=== PATIENT | male | born 1960 | race Caucasian/White ===

== ENCOUNTER 2016-09-05 12:04 | Emergency (ER) | payer OTHER ==
[2016-09-05 12:25] VITALS: BMI 21.9
[2016-09-05 12:54] LABS: BASOPHIL 0.5 % (0-2.0); EOSINOPHIL 6.1 % (0-4.5); MCH 29.3 pg (25.7-33.7); MCHC 33.7 g/dl (32.0-35.9); MEAN CELL VOLUME 86.8 fl (80-96); MEAN PLT VOLUME 7.4 fl (7.5-11.1); NEUTROPHILS 48.3 % (42.8-82.8); PLATELET COUNT 41 K/MM3 (134-434); RDW 14.7 % (11.9-15.9)
--- NOTE | 2016-09-05 13:02 | PDOC ---
History of Present Illness - History of Present Illness Initial Comments: 09/05/16 14:39 The patient is a 55 year old male, with a significant past medical history of anemia, liver transplant at [facility] (2005), portal vein clot from 3 years ago (on lovenox), and former heroin user, relapsed recently (currently at [facility] for detoxification) who presents to the emergency department sent by [facility] for pancytopenia today. He reports his last IV heroin use was 2 days ago before his admission into [facility]. The patient states he was clean for almost 20 years before his relapse 2 days ago. Pt did mention to [facility] that he had feeling of fatigue but this is chronic for the patient, and he has discussed it with his PMD at [facility] and states it is typical for s/p transplant. He denies chest pain, shortness of breath, cough, body aches, nasal congestion, headache and dizziness. He denies fever, nausea, vomit, diarrhea and constipation. He denies dysuria, frequency, urgency and hematuria. Allergies: NKDA Past surgical history: liver transplant PCP - Dr. Vinay Peterson ([phone]) <Cate Bhakta - Last Filed: 09/05/16 14:58> <Edenilson White - Last Filed: 09/05/16 15:15> - General Chief Complaint: Revisit, Lab Variance Stated Complaint: ABNORMAL LABS Time Seen by Provider: 09/05/16 12:24 Past History <Cate Bhakta - Last Filed: 09/05/16 14:58> - Past Medical History Anemia: No Asthma: No Cancer: No Cardiac Disorders: No CVA: No COPD: No CHF: No Dementia: No Diabetes: No GI Disorders: No Disorders: No HTN: No Hypercholesterolemia: No Kidney Stones: No Liver Disease: Yes (hx liver transplant 2005 [facility]) Suicide Attempt (Hx): No Seizures: No Thyroid Disease: No - Surgical History Abdominal Surgery: Yes (liver transplant) Appendectomy: No Cardiac Surgery: No Cholecystectomy: No Lung Surgery: No Neurologic Surgery: No Orthopedic Surgery: Yes (left hip replacement 2000) - Reproductive History Testicular Surgery: No - Psycho/Social/Smoking Cessation Hx Anxiety: No Suicidal Ideation: No Smoking History: Current every day smoker Have you smoked in the past 12 months: Yes Number of Cigarettes Smoked Daily: 20 Information on smoking cessation initiated: No 'Breaking Loose' booklet given: 09/04/16 (given on floor) Hx Alcohol Use: Yes Drug/Substance Use Hx: Yes Substance Use Type: Heroin Hx Substance Use Treatment: Yes <Edenilson White - Last Filed: 09/05/16 15:15> - Past Medical History Allergies/Adverse Reactions: Allergies Allergy/AdvReac Type Severity Reaction Status Date / Time No Known Allergies Allergy Verified 09/05/16 12:56 Home Medications: Ambulatory Orders Tacrolimus [Prograf] 1 mg PO BID 09/04/16 Enoxaparin Sodium [Lovenox] 30 mg SQ DAILY 09/05/16 Methadone [Dolophine -] 20 mg PO DAILY 09/05/16 Review of Systems - Review of Systems Able to Perform ROS?: Yes Comments:: 09/05/16 14:39 CONSTITUTIONAL: No reported: Fever, Diaphoresis, Generalized Weakness, Malaise, Loss of Appetite HEENT: No reported: Rhinorrhea, Nasal Congestion, Throat Pain, Throat Swelling, Difficulty Swallowing, Mouth Swelling, Ear Pain, Eye Pain, Visual Changes CARDIOVASCULAR: No reported: Chest Pain, Syncope, Palpitations, Irregular Heart Rate, Lightheadedness, Peripheral Edema RESPIRATORY: No reported: Cough, Shortness of Breath, SOB with Exertion, Orthopnea, Wheezing , Stridor, Hemoptysis GASTROINTESTINAL: No reported: Abdominal pain, Abdominal Distension, Nausea, Vomiting, Diarrhea, Constipation, Melena, Hematochezia GENITOURINARY: No reported: Dysuria, Frequency, Urgency, Hesitancy, Flank Pain, Genital Pain MUSCULOSKELETAL: No reported: Myalgia, Arthralgia, Joint Swelling, Back pain, Neck Pain SKIN: No reported: Rash, Itching, Pallor HEMEATOLOGIC/IMMUNOLOGIC: No reported: Easy Bleeding, Easy Bruising, Lymphadenopathy, Frequent infections ENDOCRINE: No reported: Unexplained Weight Gain, Unexplained Weight Loss, Heat Intolerance , Cold Intolerance NEUROLOGIC: No reported: Headache, Focal Weakness, Paresthesias, Vertigo, Lightheadedness, Unsteady Gait, Seizure, Mental Status Changes, Incontinence PSYCHIATRIC: No reported: Anxiety, Depression <Cate Bhakta - Last Filed: 09/05/16 14:58> *Physical Exam - Vital Signs Last Vital Signs Temp Pulse Resp BP Pulse Ox 97.5 F L 81 138/77 98 09/05/16 12:16 09/05/16 12:16 09/05/16 12:16 09/05/16 12:20 - Physical Exam Comments: 09/05/16 14:40 GENERAL: The patient is awake, alert, and fully oriented, Nontoxic - in no acute distress. HEAD: Normocephalic, atraumatic. EYES: extraocular movements intact, sclera anicteric, conjunctiva clear. ENT: Normal voice, Moist mucous membranes. NECK: Normal range of motion, supple LUNGS: Breath sounds equal, clear to auscultation bilaterally. No wheezes, no rhonchi, no rales. HEART: Regular rate and rhythm, without murmur, rub or gallop. ABDOMEN: well healed scar in right abdomen, several large veins on his abdomen, nontender abdomen, no rebound/guarding EXTREMITIES: Normal range of motion, no edema. hyperpigmentation in the shins b /l without tenderness, erythema. NEUROLOGICAL: No facial assymetry, Normal speech, moving all 4 extremities spontaneously and symmetrically PSYCH: Normal mood, normal affect. SKIN: Warm, Dry, normal turgor, <Cate Bhakta - Last Filed: 09/05/16 14:58> - Vital Signs Last Vital Signs Temp Pulse Resp BP Pulse Ox 97.5 F L 81 138/77 98 09/05/16 12:16 09/05/16 12:16 09/05/16 12:16 09/05/16 12:16 <Edenilson White - Last Filed: 09/05/16 15:15> Heart Score/ECG Review - ECG Impressions Comment:: 09/05/16 14:08 Twelve-lead EKG was performed and reviewed by me. There is normal sinus rhythm with a normal rate. Rate of 60 Right bundle-branch block Normal axis <Edenilson White - Last Filed: 09/05/16 15:15> ED Treatment Course - LABORATORY CBC & Chemistry Diagram: 09/05/16 12:45 09/05/16 12:45 - ADDITIONAL ORDERS Additional order review: Laboratory Results 09/05/16 09/05/16 09/05/16 13:15 12:45 12:45 INR 1.42 H Sodium Potassium Chloride Carbon Dioxide Anion Gap BUN Creatinine Creat Clearance w eGFR Random Glucose Lactic Acid 1.279 Calcium Magnesium 1.8 Total Bilirubin AST ALT Alkaline Phosphatase Total Protein Albumin TSH 0.48 09/05/16 12:45 INR Sodium 141 Potassium 4.8 Chloride 111 H Carbon Dioxide 20 L Anion Gap 10 BUN 20 H Creatinine 1.2 Creat Clearance w eGFR > 60 Random Glucose 95 D Lactic Acid Calcium 8.0 L Magnesium Total Bilirubin 0.5 AST 23 D ALT 17 Alkaline Phosphatase 104 Total Protein 7.9 Albumin 2.9 L TSH 09/05/16 13:25 Influenza Types A,B Antigen (EDYTA) - Final Nasopharyngeal Swab - Final 09/05/16 12:45 RBC 3.17 L MCV 86.8 MCHC 33.7 RDW 14.7 MPV 7.4 L Neutrophils % 48.3 Lymphocytes % 26.0 Monocytes % 19.1 H Eosinophils % 6.1 H Basophils % 0.5 <Cate Bhakta - Last Filed: 09/05/16 14:58> - LABORATORY CBC & Chemistry Diagram: 09/05/16 12:45 09/05/16 12:45 - RADIOLOGY Radiology Studies Ordered: Category Date Time Status CHEST X-RAY PORTABLE* [RAD] Stat Radiology 09/05/16 12:34 Ordered <Edenilson White - Last Filed: 09/05/16 15:15> Medical Decision Making - Medical Decision Making 09/05/16 14:58 [facility] was called ([phone]) at 14:[address] to [address] Vinay Peterson. I spoke with Adelina, the sales support coordinator who is very familiar with the patient. <Cate Bhakta - Last Filed: 09/05/16 14:58> - Medical Decision Making 09/05/16 12:56 55y M hx of heroin abuse (clean for 20 years, but relapsed recently, currently at [facility] for detox), hx of portal vein thrombosis on lovenox, sp liver transplant (~2005 at [facility]) on prograf sent in from [facility] for labs showing pancytopenia - pt denies any complaints, states he feels slightly fatigued but this has been since the transplant. ptx exam without acute finidngs. will repeta labs will check with [facility] to what his baseline labs are and to see if there are any further itnervention required. A portion of this note was documented by scribe services under my direction. I have reviewed the details of the note, within reason, and agree with the documentation with the following case summary and management plan written by me 09/05/16 15:04 labs reviewed discussed with sales support coordinator - Adelina Lassiter (coverign for Dr. Peterson) - states that the pts labs were at baseline - His recent labs: Hgb - 8.5-9.9 Platlets 36-43k wbc: 1.7-3.0 calcium a bit low 0 willgive pt some PO calcium. will d/c the pt back to [facility] - after detox he can fu with his transplant doctors. I discussed the physical exam findings, ancillary test results and final diagnoses with the patient. I answered all of the patient's questions. The patient was satisfied with the care received and felt comfortable with the discharge plan and treatment plan. The patient will call their primary care physician within 24 hours to arrange follow-up and will return to the Emergency Department with any new, persistent or worsening symptoms. 09/05/16 15:15 case d/w dr. swain at [facility] - accepted pt back to [facility] for management of detox <Edenilson White - Last Filed: 09/05/16 15:15> *DC/Admit/Observation/Transfer - Attestations Scribe Attestion: 09/05/16 14:40 Documentation prepared by Cate Bhakta, acting as medical manager for Edenilson White MD, MD <Cate Bhakta - Last Filed: 09/05/16 14:58> - Discharge Dispostion Admit: No <Edenilson White - Last Filed: 09/05/16 15:15> Diagnosis at time of Disposition: Pancytopenia, Hypocalcemia - Discharge Dispostion Disposition: I.P. ALCOHOL/SUBS ABUSE REHAB Condition at time of disposition: Stable - Patient Instructions Additional Instructions: Follow up with dr. Peterson after you are discharged from your detox stay. Print Language: SLOVAK
[2016-09-05 13:08] LABS: MAGNESIUM 1.8 mg/dL (1.8-2.4)
[2016-09-05 13:09] LABS: ALBUMIN 2.9 g/dl (3.4-5.0); ALK PHOS 104 U/L (45-117); ANION GAP 10 (8-16); BILIRUBIN,TOTAL 0.5 mg/dL (0.2-1.0); CO2 20 mmol/L (21-32); CREATININE 1.2 mg/dL (0.7-1.3); GLUCOSE,RANDOM 95 mg/dL (74-106); SGOT/AST 23 U/L (15-37); SGPT/ALT 17 U/L (12-78); TOT PROT 7.9 g/dl (6.4-8.2)
[2016-09-05 13:15] LABS: THYROID STIMULATING HORMONE 0.48 uIU/ml (0.358-3.74)
[2016-09-05 13:35] LABS: INR 1.42 (0.82-1.09); PROTHROMBIN TIME (PATIENT) 15.7 SEC (9.98-11.88)
--- NOTE | 2016-09-05 14:31 | EKG ---
Test Reason : Blood Pressure : / mmHG Vent. Rate : 060 BPM Atrial Rate : 060 BPM P-R Int : 182 ms QRS Dur : 128 ms QT Int : 456 ms P-R-T Axes : 019 -11 003 degrees QTc Int : 456 ms NORMAL SINUS RHYTHM RIGHT BUNDLE BRANCH BLOCK ABNORMAL ECG WHEN COMPARED WITH ECG OF 04-SEP-2016 18:23, RIGHT BUNDLE BRANCH BLOCK HAS REPLACED NON-SPECIFIC INTRA-VENTRICULAR CONDUCTION DELAY Confirmed by KARTHIK JONES, HARRY ([id number]) on 09/05/2016 2:30:44 PM Referred By: Confirmed By:HARRY ANGELES MD
[2016-09-05] MEDS ORDERED: CALCIUM (OYSTER SHELL) 500 MG TABLET (FP) PO SCH (15:15)
[2016-09-05 16:19] VITALS: BP 124/74; PULSE 80; TEMP 98.6
== END 2016-09-05 16:17 | disposition home or self-care (01) ==
LOC: JER 12:04
DX: D61.818 Other pancytopenia (principal); E83.51 Hypocalcemia; F11.10 Opioid abuse, uncomplicated; Z94.4 Liver transplant status; Z86.718 Personal history of other venous thrombosis and embolism; Z79.01 Long term (current) use of anticoagulants
CPT/HCPCS: 36415; 71010-TC; 80053; 83605; 83735; 84443; 85025; 85610; 86850; 86900; 86901; 87040; 87804; 93005; 93010; 99283-25

== ENCOUNTER 2017-01-02 17:25 | Inpatient (IN) | payer OTHER ==
--- NOTE | 2017-01-02 18:35 | HP ---
COWS - Scale Resting Pulse: 1= AL 81-100 Sweatin= Chills/Flushing Restless Observation: 3= Extraneous Movement Pupil Size: 2= Moderately Dilated Bone or Joint Aches: 2= Severe Diffuse Aches Runny Nose/ Eye Tearin= Runny Nose/Eyes GI Upset > 30mins: 3= Vomiting/Diarrhea Tremor Observation: 2= Slight Tremor Visible Yawning Observation: 2= >3x During Session Anxiety or Irritability: 2=Irritable/Anxious Goose Flesh Skin: 0=Smooth Skin COWS Score: 20 CIWA Score - CIWA Score Nausea/Vomitin Muscle Tremors: 3 Anxiety: 3 Agitation: 3 Paroxysmal Sweats: 2 Orientation: 0-Oriented Tacttile Disturbances: 2-Mild Itch/Numbness/Burn Auditory Disturbances: 2-Mild Harshness/Frighten Visual Disturbances: 2-Mild Sensitivity Headache: 2-Mild CIWA-Ar Total Score: 22 Admission ROS BHS - HPI Chief Complaint: I NEED HELP TO STOP USING HEROIN AND ALCOHOL Allergies/Adverse Reactions: Allergies Allergy/AdvReac Type Severity Reaction Status Date / Time No Known Allergies Allergy Verified 09/05/16 12:56 History of Present Illness: THIS 56 YEARS OLD WHITE MALE SEEKING DETOX FROM HEROIN AND ALCOHOL,ADMITTED IN DETOX BEFORE,LAST DETOX 09/04/16 TO 09/06/16 NOT COMPLETED SEIZURE LAST 2014 MULTIPLE MEDICAL PROBLEM,LIVER TRANSPLANT AT 2005 LEFT HIP REPLACEMENT IN 2000 LONGEST PERIOD SOBRIETY 12 YEARS Exam Limitations: No Limitations - Review of Systems Constitutional: Chills, Loss of Appetite, Malaise, Night Sweats, Changes in sleep, Weakness, Unintentional Wgt. Loss EENT: reports: Tearing, Nose Congestion Respiratory: reports: No Symptoms reported Cardiac: reports: No Symptoms Reported GI: reports: Diarrhea, Nausea, Vomiting, Abdominal cramping : reports: No Symptoms Reported Musculoskeletal: reports: Back Pain, Joint Pain, Muscle Pain, Joint Stiffness (S /P LEFT HIP REPLACEMENT) Integumentary: reports: Dryness Neuro: reports: Headache, Seizure, Tremors, Weakness Endocrine: reports: No Symptoms Reported Hematology: reports: Other (PANCYTOPENIA) Psychiatric: reports: Depressed Patient History - Patient Medical History Hx Anemia: No Hx Asthma: No Hx Chronic Obstructive Pulmonary Disease (COPD): No Hx Cancer: No Hx Cardiac Disorders: No Hx Congestive Heart Failure: No Hx Hypertension: No Hx Hypercholesterolemia: No Hx Pacemaker: No HX Cerebrovascular Accident: No Hx Seizures: No Hx Dementia: No Hx Diabetes: No Hx Gastrointestinal Disorders: No Hx Liver Disease: Yes (hx liver transplant 2005 [facility]) Hx Genitourinary Disorders: No Hx Sexually Transmitted Disorders: No Hx Renal Disease (ESRD): No Hx Thyroid Disease: No Hx Human Immunodeficiency Virus (HIV): No (LAST 07/07 NEGATIVE) Hx Hepatitis C: No Hx Depression: Yes Hx Suicide Attempt: No Hx Bipolar Disorder: No Hx Schizophrenia: No Other Medical History: NO SUIC IDAL,NO HOMICIDAL - Patient Surgical History Past Surgical History: No Hx Neurologic Surgery: No Hx Cataract Extraction: No Hx Cardiac Surgery: No Hx Lung Surgery: No Hx Breast Surgery: No Hx Breast Biopsy: No Hx Abdominal Surgery: Yes (liver transplant IN 2005 [facility]) Hx Appendectomy: No Hx Cholecystectomy: No Hx Genitourinary Surgery: No Hx Orthopedic Surgery: Yes (left hip replacement 2000) Anesthesia Reaction: No - PPD History Previous Implant?: Yes Documented Results: Negative w/o proof Implanted On Prior [facility] Admission?: Yes Date: 09/06/16 Results: NO READING PPD to be Administered?: Yes - Smoking Cessation Smoking history: Current every day smoker Have you smoked in the past 12 months: Yes Aproximately how many cigarettes per day: 10 Hx Chewing Tobacco Use: No Initiated information on smoking cessation: Yes 'Breaking Loose' booklet given: 01/02/17 - Substance & Tx. History Hx Alcohol Use: Yes Hx Substance Use: Yes Substance Use Type: Alcohol, Heroin Hx Substance Use Treatment: Yes ([facility] 09/04/16 TO 09/06/16 NOT COMPLETRED) - Substances Abused Heroin Route: Injection Frequency: Daily Amount used: 8 BAGS Age of first use: 31 Date of Last Use: 01/02/17 Alcohol Route: Oral Frequency: Daily Amount used: 2PINTS OF ANITA/6 PACKS OF 8 OZS OF BEER Age of first use: 12 Date of Last Use: 01/01/17 Family Disease History - Family Disease History Family Disease History: Heart Disease: Father (,), Other: Father Admission Physical Exam BHS - Vital Signs Vital Signs: Vital Signs Temperature Pulse Rate 85 01/02/17 19:10 Respiratory Rate 20 01/02/17 19:10 Blood Pressure 140/85 01/02/17 19:10 O2 Sat by Pulse Oximetry (%) - Physical General Appearance: Yes: Moderate Distress, Thin, Tremorous, Irritable, Sweating , Anxious HEENTM: Yes: Hearing grossly Normal, Normal ENT Inspection, Pharynx Normal Respiratory: Yes: Lungs Clear, Normal Breath Sounds, No Respiratory Distress Neck: Yes: Within Normal Limits, Supple, Trachea in good position Breast: Yes: Within Normal Limits Cardiology: Yes: Within Normal Limits, Regular Rhythm, Regular Rate, S1, S2 Abdominal: Yes: Within Normal Limits, Normal Bowel Sounds, Non Tender, Flat, Soft, Surgical Scar, Other (DILATATION OF VEINS IN ABDOMEN AND CHEST WALL) Genitourinary: Yes: Within Normal Limits Back: Yes: Normal Inspection, Muscle Spasm Musculoskeletal: Yes: Back pain, Joint Stiffness, Muscle Pain Extremities: Yes: Tremors 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 NML intact, Fully Oriented, Alert, Motor Strength 5/5 Integumentary: Yes: Dry, Track Florian Lymphatic: Yes: Within Normal Limits - Diagnostic (1) Opioid dependence with withdrawal Current Visit: Yes Status: Acute (2) Alcohol dependence with uncomplicated withdrawal Current Visit: Yes Status: Acute (3) Alcohol related seizure Current Visit: Yes Status: Acute (4) Nicotine dependence Current Visit: No Status: Chronic Qualifiers: Nicotine product type: cigarettes Substance use status: uncomplicated Qualified Code(s): F17.210 - Nicotine dependence, cigarettes, uncomplicated (5) History of liver transplant Current Visit: No Status: Chronic (6) History of left hip replacement Current Visit: Yes Status: Acute (7) Weight loss Current Visit: Yes Status: Acute (8) History of pancytopenia Current Visit: Yes Status: Acute (9) History of portal hypertension Current Visit: Yes Status: Acute Cleared for Admission S - Detox or Rehab [facility] Level of Care: Medically Managed Detox Regimen/Protocol: Methadone/Librium S Breath Alcohol Content Breath Alcohol Content: 0 Vital Signs - Vital Signs Vital Signs Refused: No Temperature Source: Oral Pulse Rate: 85 Respiratory Rate: 20 Blood Pressure: 140/85 BP Location: Left Arm Blood Pressure Position: Supine - Height Height: 5 ft 7 in - Weight Weight: 136 lb Weight Measurement Method: Standing Scale Body Mass Index (BMI): 21.2 Urine Drug Screen - Test Device Lot Number: [id number] Expiration Date: 11/30/18 - Control Is Test Valid: Yes - Results Drug Screen Negative: No Urine Drug Screen Results: OPI-Opiates, TCA-Tricyclic Antidepress, OXY-Oxycodone
[2017-01-02 18:53] VITALS: BMI 21.2
[2017-01-02] MEDS ORDERED: MAGNESIUM HYDROX 2400MG/30ML ORAL SUSPENSION 30 ML CUP PO PRN (19:10)
[2017-01-02] MEDS ORDERED: hydrOXYzine PAMOATE 25 MG CAPSULE (FP) PO PRN (19:10)
[2017-01-02] MEDS ORDERED: METHADONE HCL 10 MG TABLET (FOR DETOX USE ONLY) PO ONE ×2 (19:10→23:00)
[2017-01-02] MEDS ORDERED: IBUPROFEN 400 MG TABLET (FP) PO PRN (19:10)
[2017-01-02] MEDS ORDERED: MAGNESIUM CITRATE 300 ML BOTTLE PO PRN (19:10)
[2017-01-02] MEDS ORDERED: chlordiazePOXIDE HCL 25 MG CAPSULE PO PRN (19:10)
[2017-01-02] MEDS ORDERED: LOPERAMIDE HCL 2 MG CAPSULE PO PRN (19:10)
[2017-01-02] MEDS ORDERED: chlordiazePOXIDE HCL 25 MG CAPSULE PO ONE (19:10)
[2017-01-02] MEDS ORDERED: diphenhydrAMINE HCL 50 MG CAPSULE PO PRN (19:10)
[2017-01-02] MEDS ORDERED: guaiFENesin/D-METHORPHAN HB 10 ML UNIT-DOSE CUPS PO PRN (19:10)
[2017-01-02] MEDS ORDERED: P-EPHED 60MG/TRIPROLIDI 2.5MG TABLET PO PRN (19:10)
[2017-01-02] MEDS ORDERED: MENTHOL/PHENOL 1 EACH UD MM PRN (19:10)
[2017-01-02] MEDS: chlordiazePOXIDE HCL 25 MG CAPSULE PO SCH (22:06)
[2017-01-02] MEDS: THIAMINE HCL 100 MG TABLET (FP) PO SCH (22:07)
[2017-01-03] MEDS: MAG HYDROX/AL HYDROX/SIMETH 30 ML UNIT-DOSE CUP PO PRN ×2 (05:44→12:34)
[2017-01-03] MEDS: chlordiazePOXIDE HCL 25 MG CAPSULE PO SCH ×4 (05:45→22:29)
--- NOTE | 2017-01-03 09:22 | CONSULT ---
[facility] Psychiatric Consult - Data Date of interview: 01/03/17 Admission source: [facility] Identifying data: This is 56 years old male with no psychiatric hospitalization history intoxicated with: Alcohol, Heroin and Nicotine Substance Abuse History: - Smoking Cessation. Smoking history: Current every day smoker. Have you smoked in the past 12 months: Yes. Aproximately how many cigarettes per day: 10. Hx Chewing Tobacco Use: No. Initiated information on smoking cessation: Yes. 'Breaking Loose' booklet given: 01/02/17. - Substance & Tx. History. Hx Alcohol Use: Yes. Hx Substance Use: Yes. Substance Use Type : Alcohol, Heroin. Hx Substance Use Treatment: Yes ([facility] 09/04/16 TO 09/06/16 NOT COMPLETRED). - Substances Abused. Heroin. Route: Injection. Frequency : Daily. Amount used: 8 BAGS. Age of first use: 31. Date of Last Use: . Alcohol. Route: Oral. Frequency: Daily. Amount used: 2PINTS OF ANITA /6 PACKS OF 8 OZS OF BEER. Age of first use: 12. Date of Last Use: 01/01/17 Medical History: Left Hip s/p repolacement surgery history, HTN, Weight loss, Hyp[ocalcemia, Pamcytopenia history Psychiatric History: Patient reprots no past psychiatric history Physical/Sexual Abuse/Trauma History: Denies Additional Comment: Observation. Detox Unit Care Protocol Mental Status Exam - Mental Status Exam Alert and Oriented to: Person Cognitive Function: Fair Patient Appearance: Unkempt Mood: Sad Affect: Flat Patient Behavior: Sedated Speech Pattern: Delayed Voice Loudness: Mildly Soft/Quiet Thought Process: Circumstantial Thought Disorder: Being Controlled Hallucinations: Denies Suicidal Ideation: Denies Homicidal Ideation: Denies Sleep: Difficulty falling asleep Appetite: Weight loss Muscle strength/Tone: Moderate Hypotonicity Gait/Station: Shuffling Additional Comments: Observation. Detox Unit Care Protocol Psychiatric Findings - Problem List (Wilcox 1, 2,3) (1) Alcohol dependence with uncomplicated withdrawal Current Visit: Yes Status: Acute (2) Alcohol related seizure Current Visit: Yes Status: Acute (3) Opioid dependence with withdrawal Current Visit: Yes Status: Acute (4) Weight loss Current Visit: Yes Status: Acute (5) Nicotine dependence Current Visit: No Status: Chronic Qualifiers: Nicotine product type: cigarettes Substance use status: uncomplicated Qualified Code(s): F17.210 - Nicotine dependence, cigarettes, uncomplicated (6) Uncomplicated opioid dependence Current Visit: No Status: Chronic (7) Drug-induced mood disorder Current Visit: Yes Status: Suspected - Initial Treatment Plan Initial Treatment Plan: Observation. Detox Unit Care Protocol
[2017-01-03] MEDS ORDERED: METHADONE HCL 10 MG TABLET (FOR DETOX USE ONLY) PO SCH (10:00)
[2017-01-03] MEDS ORDERED: NADOLOL 20 MG TABLET (FP) PO SCH (10:00)
[2017-01-03] MEDS ORDERED: ENOXAPARIN NA (PORCINE) 30 MG/0.3 ML DISP.SYRIN SQ SCH (10:00)
[2017-01-03 10:07] LABS: MCH 29.9 pg (25.7-33.7); MCHC 34.1 g/dl (32.0-35.9); MEAN CELL VOLUME 87.7 fl (80-96); MEAN PLT VOLUME 8.3 fl (7.5-11.1); RDW 14.5 % (11.9-15.9); WHITE BLOOD COUNT 2.4 K/mm3 (4.0-10.0)
[2017-01-03 10:11] LABS: PLATELET COUNT 30 K/MM3 (134-434)
[2017-01-03] MEDS: PRENATAL VITAMINS W/ FOLIC ACID TABLET (FP) PO SCH (10:14)
[2017-01-03] MEDS: NADOLOL 20 MG PO SCH ×2 (10:15→22:29)
[2017-01-03] MEDS: NICOTINE 21 MG/24 HOURS TOPICAL PATCH TD SCH (10:16)
[2017-01-03] MEDS: PROGRAFT PO SCH ×2 (10:18→22:29)
[2017-01-03 10:21] LABS: CALCIUM 7.8 mg/dL (8.5-10.1)
[2017-01-03 10:24] LABS: BILIRUBIN,TOTAL 0.7 mg/dL (0.2-1.0); COCKROFT - GAULT 40.45; CREATININE 1.8 mg/dL (0.7-1.3); TOT PROT 7.7 g/dl (6.4-8.2)
--- NOTE | 2017-01-03 10:43 | PN ---
[facility] CIWA - CIWA Score Nausea/Vomitin-No Nausea/No Vomiting Muscle Tremors: 3 Anxiety: 3 Agitation: 3 Paroxysmal Sweats: 3 Orientation: 0-Oriented Tacttile Disturbances: 0-None Auditory Disturbances: 0-None Visual Disturbances: 0-None Headache: 0-None Present CIWA-Ar Total Score: 12 BHS COWS - Scale Resting Pulse: 0= FL 80 or Below Sweatin=Flushed/Facial Moisture Restless Observation: 1= Difficult to Sit Still Pupil Size: 0= Normal to Room Light Bone or Joint Aches: 2= Severe Diffuse Aches Runny Nose/ Eye Tearin= Runny Nose/Eyes GI Upset > 30mins: 0= None Tremor Observation of Outstretched Hands: 2= Slight Tremor Visible Yawning Observation: 2= >3x During Session Anxiety or Irritability: 2=Irritable/Anxious Goose Flesh Skin: 0=Smooth Skin COWS Score: 13 S Progress Note (SOAP) Subjective: tired sweats interrupted sleep agitation anxiety Objective: 01/03/17 10:42 Vital Signs Temperature 98.1 F 01/03/17 09:33 Pulse Rate 78 01/03/17 09:33 Respiratory Rate 16 01/03/17 09:33 Blood Pressure 113/65 01/03/17 09:33 O2 Sat by Pulse Oximetry (%) Laboratory Tests 01/03/17 01/03/17 01/03/17 08:00 08:00 08:00 WBC 2.4 L RBC 2.93 L Hgb 8.8 L Hct 25.7 L MCV 87.7 MCHC 34.1 RDW 14.5 Plt Count 30 L* D MPV 8.3 D Sodium 138 Potassium 5.3 H Chloride 110 H Carbon Dioxide 22 Anion Gap 6 L BUN 39 H D Creatinine 1.8 H D Creat Clearance w eGFR 39.37 Random Glucose 97 Calcium 7.8 L Total Bilirubin 0.7 D AST 27 ALT 21 D Alkaline Phosphatase 105 Ammonia 73.5 H Total Protein 7.7 Albumin 3.0 L repeat labs awake/alert ambulating no acute distress Assessment: 01/03/17 10:42 withdrawal sx Plan: continue detox increase fluids f/u pending labs
[2017-01-03] MEDS ORDERED: PANTOPRAZOLE 40 MG TABLET (FP) PO ONE (12:46)
--- NOTE | 2017-01-03 13:02 | EKG ---
Test Reason : Blood Pressure : / mmHG Vent. Rate : 068 BPM Atrial Rate : 068 BPM P-R Int : 182 ms QRS Dur : 122 ms QT Int : 422 ms P-R-T Axes : 016 068 017 degrees QTc Int : 448 ms NORMAL SINUS RHYTHM RIGHT BUNDLE BRANCH BLOCK CANNOT RULE OUT INFERIOR INFARCT , AGE UNDETERMINED ABNORMAL ECG WHEN COMPARED WITH ECG OF 05-SEP-2016 13:02, MINIMAL CRITERIA FOR INFERIOR INFARCT ARE NOW PRESENT Confirmed by GREGORY JONES, MIKEY ([id number]) on 01/03/2017 1:01:55 PM Referred By: Payam Woods Confirmed By:MIKEY JENKINS MD
[2017-01-03] MEDS ORDERED: LACTULOSE 20 GM/30 ML UDC (FOR ORAL USE ONLY) PO ONE (13:15)
[2017-01-03] MEDS ORDERED: ONDANSETRON *ODT* 4 MG TABLET SL ONE (19:18)
[2017-01-03] MEDS ORDERED: NICOTINE POLACRILEX 2 MG GUM BUC ONE (19:42)
[2017-01-03] MEDS ORDERED: NICOTINE POLACRILEX 2 MG GUM BUC PRN (21:00)
[2017-01-03] MEDS ORDERED: NADOLOL 20 MG PO SCH (22:00)
[2017-01-03] MEDS: THIAMINE HCL 100 MG TABLET (FP) PO SCH (22:29)
[2017-01-03] MEDS: LACTULOSE 20 GM/30 ML UDC (FOR ORAL USE ONLY) PO SCH (22:29)
[2017-01-03] MEDS: ACETAMINOPHEN 325 MG TABLET (FP) PO PRN (22:32)
[2017-01-04] MEDS: chlordiazePOXIDE HCL 25 MG CAPSULE PO SCH ×3 (05:49→17:55)
[2017-01-04] MEDS: METHADONE HCL 5 MG TABLET (FOR DETOX USE ONLY) PO SCH (10:14)
[2017-01-04] MEDS: NICOTINE 21 MG/24 HOURS TOPICAL PATCH TD SCH (10:15)
[2017-01-04] MEDS: PANTOPRAZOLE 40 MG TABLET (FP) PO SCH (10:15)
[2017-01-04] MEDS: PRENATAL VITAMINS W/ FOLIC ACID TABLET (FP) PO SCH (10:15)
[2017-01-04] MEDS: PROGRAFT PO SCH ×2 (10:17→22:25)
[2017-01-04] MEDS: NADOLOL 20 MG PO SCH ×2 (10:17→22:24)
[2017-01-04] MEDS: LACTULOSE 20 GM/30 ML UDC (FOR ORAL USE ONLY) PO SCH ×2 (10:18→22:27)
--- NOTE | 2017-01-04 10:20 | PN ---
[facility] CIWA - CIWA Score Nausea/Vomitin Muscle Tremors: 3 Anxiety: 3 Agitation: 2 Paroxysmal Sweats: 1-Minimal Palms Moist Orientation: 0-Oriented Tacttile Disturbances: 1-Very Mild Itch/Numbness Auditory Disturbances: 1-Very Mild Visual Disturbances: 1-Very Mild Sensitivity Headache: 2-Mild CIWA-Ar Total Score: 17 BHS COWS - Scale Resting Pulse: 0= SD 80 or Below Sweatin= Chills/Flushing Restless Observation: 3= Extraneous Movement Pupil Size: 1= Pupils >than Normal Bone or Joint Aches: 2= Severe Diffuse Aches Runny Nose/ Eye Tearin= Runny Nose/Eyes GI Upset > 30mins: 2= Nausea/Diarrhea Tremor Observation of Outstretched Hands: 2= Slight Tremor Visible Yawning Observation: 1= 1-2x During Session Anxiety or Irritability: 2=Irritable/Anxious Goose Flesh Skin: 0=Smooth Skin COWS Score: 16 S Progress Note (SOAP) Subjective: ALERT,IRRITABLE,ANXIOUS,TREMOR,PAIN IN THE BODY AND BACK,INTERRUPTED SLEEP Objective: 01/04/17 10:17 Vital Signs Temperature 97.9 F 01/04/17 09:37 Pulse Rate 64 01/04/17 09:37 Respiratory Rate 18 01/04/17 09:37 Blood Pressure 117/71 01/04/17 09:37 O2 Sat by Pulse Oximetry (%) Laboratory Last Values WBC 2.4 K/mm3 (4.0-10.0) L 01/03/17 08:00 RBC 2.93 M/mm3 (4.00-5.60) L 01/03/17 08:00 Hgb 8.8 GM/dL (11.7-16.9) L 01/03/17 08:00 Hct 25.7 % (35.4-49) L 01/03/17 08:00 MCV 87.7 fl (80-96) 01/03/17 08:00 MCHC 34.1 g/dl (32.0-35.9) 01/03/17 08:00 RDW 14.5 % (11.9-15.9) 01/03/17 08:00 Plt Count 30 K/MM3 (134-434) L* D 01/03/17 08:00 MPV 8.3 fl (7.5-11.1) D 01/03/17 08:00 Sodium 138 mmol/L (136-145) 01/03/17 08:00 Potassium 5.3 mmol/L (3.5-5.1) H 01/03/17 08:00 Chloride 110 mmol/L (98-107) H 01/03/17 08:00 Carbon Dioxide 22 mmol/L (21-32) 01/03/17 08:00 Anion Gap 6 (8-16) L 01/03/17 08:00 BUN 39 mg/dL (7-18) H D 01/03/17 08:00 Creatinine 1.8 mg/dL (0.7-1.3) H D 01/03/17 08:00 Creat Clearance w eGFR 39.37 (>60) 01/03/17 08:00 Random Glucose 97 mg/dL (74-106) 01/03/17 08:00 Calcium 7.8 mg/dL (8.5-10.1) L 01/03/17 08:00 Total Bilirubin 0.7 mg/dL (0.2-1.0) D 01/03/17 08:00 AST 27 U/L (15-37) 01/03/17 08:00 ALT 21 U/L (12-78) D 01/03/17 08:00 Alkaline Phosphatase 105 U/L (45-117) 01/03/17 08:00 Ammonia 73.5 umol/L (11-32) H 01/03/17 08:00 Total Protein 7.7 g/dl (6.4-8.2) 01/03/17 08:00 Albumin 3.0 g/dl (3.4-5.0) L 01/03/17 08:00 RPR Titer Nonreactive (NONREACTIVE) 01/03/17 08:00 HISTORY OF 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
[2017-01-04 10:29] LABS: MCHC 33.8 g/dl (32.0-35.9); MEAN CELL VOLUME 88.5 fl (80-96); MEAN PLT VOLUME 8.4 fl (7.5-11.1); RDW 14.9 % (11.9-15.9); WHITE BLOOD COUNT 2.4 K/mm3 (4.0-10.0)
[2017-01-04 10:32] LABS: PLATELET COUNT 33 K/MM3 (134-434)
[2017-01-04 11:05] LABS: ALBUMIN 2.9 g/dl (3.4-5.0); BILIRUBIN,TOTAL 0.9 mg/dL (0.2-1.0); COCKROFT - GAULT 45.51; CREATININE 1.6 mg/dL (0.7-1.3); TOT PROT 7.6 g/dl (6.4-8.2)
[2017-01-04] MEDS: ACETAMINOPHEN 325 MG TABLET (FP) PO PRN (13:45)
[2017-01-04] MEDS: THIAMINE HCL 100 MG TABLET (FP) PO SCH (22:25)
[2017-01-04] MEDS: chlordiazePOXIDE 5 MG CAPSULE PO SCH (23:03)
[2017-01-05] MEDS: chlordiazePOXIDE 5 MG CAPSULE PO SCH ×3 (05:20→17:55)
[2017-01-05] MEDS: PRENATAL VITAMINS W/ FOLIC ACID TABLET (FP) PO SCH (10:12)
[2017-01-05] MEDS: PANTOPRAZOLE 40 MG TABLET (FP) PO SCH (10:12)
[2017-01-05] MEDS: NADOLOL 20 MG PO SCH ×2 (10:12→22:13)
[2017-01-05] MEDS: LACTULOSE 20 GM/30 ML UDC (FOR ORAL USE ONLY) PO SCH ×2 (10:13→22:13)
[2017-01-05] MEDS: METHADONE HCL 5 MG TABLET (FOR DETOX USE ONLY) PO SCH (10:13)
[2017-01-05] MEDS: NICOTINE 21 MG/24 HOURS TOPICAL PATCH TD SCH (10:13)
[2017-01-05] MEDS: PROGRAFT PO SCH ×2 (10:15→22:13)
[2017-01-05 10:35] LABS: INR 1.3 (0.82-1.09); PROTHROMBIN TIME (PATIENT) 14.4 SEC (9.98-11.88)
--- NOTE | 2017-01-05 10:36 | PN ---
BHS Progress Note (SOAP) Subjective: sweats interrupted sleep body aches Objective: 01/05/17 10:35 Vital Signs Temperature 97.7 F 01/05/17 09:35 Pulse Rate 62 01/05/17 09:35 Respiratory Rate 18 01/05/17 09:35 Blood Pressure 131/77 01/05/17 09:35 O2 Sat by Pulse Oximetry (%) awake/alert ambulating no acute distress Assessment: 01/05/17 10:36 withdrawal sx Plan: continue detox increase fluids
[2017-01-05] MEDS: ACETAMINOPHEN 325 MG TABLET (FP) PO PRN (17:27)
[2017-01-05] MEDS: chlordiazePOXIDE HCL 10 MG CAPSULE PO SCH (22:13)
[2017-01-05] MEDS: THIAMINE HCL 100 MG TABLET (FP) PO SCH (22:14)
[2017-01-06] MEDS ORDERED: cloNIDine HCL 0.1 MG TABLET PO ONE (01:17)
[2017-01-06] MEDS: chlordiazePOXIDE HCL 10 MG CAPSULE PO SCH ×3 (05:23→17:22)
[2017-01-06] MEDS ORDERED: METHADONE HCL 10 MG TABLET (FOR DETOX USE ONLY) PO SCH (10:00)
[2017-01-06] MEDS: NADOLOL 20 MG PO SCH (10:12)
[2017-01-06] MEDS: PRENATAL VITAMINS W/ FOLIC ACID TABLET (FP) PO SCH (10:12)
[2017-01-06] MEDS: PROGRAFT PO SCH (10:12)
[2017-01-06] MEDS: NICOTINE 21 MG/24 HOURS TOPICAL PATCH TD SCH (10:13)
[2017-01-06] MEDS: PANTOPRAZOLE 40 MG TABLET (FP) PO SCH (10:13)
--- NOTE | 2017-01-06 10:13 | PN ---
BHS Progress Note (SOAP) Subjective: ALERT,INTERRUPTED SLEEP,PAIN IN THE BODY Objective: 01/06/17 10:11 Vital Signs Temperature 98.1 F 01/06/17 09:21 Pulse Rate 62 01/06/17 09:21 Respiratory Rate 16 01/06/17 09:21 Blood Pressure 111/71 01/06/17 09:21 O2 Sat by Pulse Oximetry (%) 01/06/17 10:12 Assessment: 01/06/17 10:12 WITHDRAWAL SYMPTOM Plan: CONTINUE DETOX,DISCHARGE IN AM
[2017-01-06] MEDS: LACTULOSE 20 GM/30 ML UDC (FOR ORAL USE ONLY) PO SCH (10:17)
[2017-01-06] MEDS ORDERED: LIDOCAINE VISCOUS 2% ORAL/TOP 20 ML UNIT-DOSE CUP MM PRN (13:20)
[2017-01-06 18:18] VITALS: BP 105/64; PULSE 64; TEMP 97.9
--- NOTE | 2017-01-06 19:06 | DS ---
[facility] Detox Discharge Summary Admission Date: 01/02/17 Discharge Date: 01/06/17 - History Present History: Alcohol Dependence, Opioid Dependence Additional Comments: patient insists to leave the unit refuses to wait face to face with the provider refuses e prescription Pertinent Past History: hypertension embolism liver transplanted - Physical Exam Results Vital Signs: Vital Signs Temperature 97.9 F 01/06/17 18:18 Pulse Rate 64 01/06/17 18:18 Respiratory Rate 16 01/06/17 18:18 Blood Pressure 105/64 01/06/17 18:18 O2 Sat by Pulse Oximetry (%) Pertinent Admission Physical Exam Findings: withdrawal sx Laboratory Last Values WBC 2.4 K/mm3 (4.0-10.0) L 01/04/17 07:00 RBC 2.83 M/mm3 (4.00-5.60) L 01/04/17 07:00 Hgb 8.5 GM/dL (11.7-16.9) L 01/04/17 07:00 Hct 25.1 % (35.4-49) L 01/04/17 07:00 MCV 88.5 fl (80-96) 01/04/17 07:00 MCHC 33.8 g/dl (32.0-35.9) 01/04/17 07:00 RDW 14.9 % (11.9-15.9) 01/04/17 07:00 Plt Count 33 K/MM3 (134-434) L* 01/04/17 07:00 MPV 8.4 fl (7.5-11.1) 01/04/17 07:00 Neutrophils % 42.0 % (42.8-82.8) L 01/04/17 07:00 Lymphocytes % 37.0 % (8-40) D 01/04/17 07:00 Monocytes % 15.0 % (3.8-10.2) H 01/04/17 07:00 Eosinophils % 5.0 % (0-4.5) H 01/04/17 07:00 Basophils % 0.0 % (0-2.0) 01/04/17 07:00 Band Neutrophils 1.0 % (0-10) 01/04/17 07:00 INR 1.30 (0.82-1.09) H 01/05/17 07:00 Sodium 139 mmol/L (136-145) 01/04/17 07:00 Potassium 4.8 mmol/L (3.5-5.1) 01/04/17 07:00 Chloride 110 mmol/L (98-107) H 01/04/17 07:00 Carbon Dioxide 20 mmol/L (21-32) L 01/04/17 07:00 Anion Gap 9 (8-16) 01/04/17 07:00 BUN 39 mg/dL (7-18) H 01/04/17 07:00 Creatinine 1.6 mg/dL (0.7-1.3) H 01/04/17 07:00 Creat Clearance w eGFR 45.10 (>60) 01/04/17 07:00 Random Glucose 102 mg/dL (74-106) 01/04/17 07:00 Calcium 8.0 mg/dL (8.5-10.1) L 01/04/17 07:00 Total Bilirubin 0.9 mg/dL (0.2-1.0) D 01/04/17 07:00 AST 23 U/L (15-37) 01/04/17 07:00 ALT 18 U/L (12-78) 01/04/17 07:00 Alkaline Phosphatase 102 U/L (45-117) 01/04/17 07:00 Ammonia 73.5 umol/L (11-32) H 01/03/17 08:00 Total Protein 7.6 g/dl (6.4-8.2) 01/04/17 07:00 Albumin 2.9 g/dl (3.4-5.0) L 01/04/17 07:00 RPR Titer Nonreactive (NONREACTIVE) 01/03/17 08:00 lab noted - Treatment Hospital Course: Detox Protocol Followed, Responded well - Medication Discharge Medications: Ambulatory Orders Tacrolimus [Prograf] 1 mg PO BID 09/04/16 Enoxaparin Sodium [Lovenox] 30 mg SQ DAILY 09/05/16 Nadolol [Corgard -] 20 mg PO BID 01/02/17 - AMA Did Patient Leave Against Medical Advice: Yes
[2017-01-07] MEDS ORDERED: METHADONE HCL 5 MG TABLET (FOR DETOX USE ONLY) PO SCH (06:00)
== END 2017-01-06 18:53 | disposition left against medical advice (07) | DRG 894 ==
LOC: YASAS 17:25 → Y6N 19:11
PROVIDERS: ADMIT Internal Medicine Addiction Medicine; ATTEND Internal Medicine Addiction Medicine
PROC: HZ2ZZZZ Detoxification Services for Substance Abuse Treatment (ICD-10-PCS; principal; 2017-01-06)
DX: F11.23 Opioid dependence with withdrawal (principal); G40.509 Epileptic seizures related to external causes, not intractable, without status epilepticus; K76.6 Portal hypertension; D61.818 Other pancytopenia; F10.230 Alcohol dependence with withdrawal, uncomplicated; F17.210 Nicotine dependence, cigarettes, uncomplicated; F19.24 Other psychoactive substance dependence with psychoactive substance-induced mood disorder; K76.9 Liver disease, unspecified; Z96.641 Presence of right artificial hip joint; R63.4 Abnormal weight loss; Z68.21 Body mass index [BMI] 21.0-21.9, adult
CPT/HCPCS: 36415; 80053; 82140; 85025; 85027; 85610; 86593; 93005; 93010

== ENCOUNTER → 2017-10-07 | Emergency (ER) | payer OTHER ==
[~2017-10-07] MED LIST: KETOROLAC TROMETHAMINE 15 MG/ML VIAL IVPUSH ONE; KETOROLAC TROMETHAMINE 15 MG/ML VIAL ONE; SODIUM POLYSTYRENE SULFONATE 15 GM/60 ML BOTTLE ONE; SODIUM POLYSTYRENE SULFONATE 15 GM/60 ML BOTTLE PO ONE; diazePAM 5 MG TABLET ONE; diazePAM 5 MG TABLET PO ONE
[2017-10-07 23:13] VITALS: BP 150/90; PULSE 66; TEMP 97.7; BMI 23.5
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
[2017-10-08 02:46] LABS: BASO % 0.3 % (0-2.0); EOS % 3.9 % (0-4.5); HEMATOCRIT 32.6 % (35.4-49); LYMPH % 13.9 % (8-40); MCH 30.2 pg (25.7-33.7); MCHC 33.7 g/dl (32.0-35.9); MEAN CELL VOLUME 89.6 fl (80-96); MONO % 17.4 % (3.8-10.2); NEUT % 64.5 % (42.8-82.8); RBC 3.64 M/mm3 (4.00-5.60); RDW 13.8 % (11.9-15.9); WHITE BLOOD COUNT 4.8 K/mm3 (4.0-10.0)
--- NOTE | 2017-10-08 03:15 | PDOC ---
Attending Attestation - Resident Resident Name: Rik Dow - ED Attending Attestation I have performed the following: I have examined & evaluated the patient, The case was reviewed & discussed with the resident, I agree w/resident's findings & plan - HPI HPI: 10/08/17 04:16 Pt comes with constipation. He is complaining of abdominal pain. - Physicial Exam PE: 10/08/17 04:19 Agree with resident exam - Medical Decision Making 10/08/17 04:19 Pt's labs show his potassium is elevated. He will be treated with kayexalate, as he is complaining of constipation. Pt is awaiting abd pelvis CT scan. 10/08/17 20:55 Pt was upset that we were not giving him narcotics and he eloped.
[2017-10-08 03:30] LABS: ALBUMIN 3.3 g/dl (3.4-5.0); ALK PHOS 93 U/L (45-117); ANION GAP 5 (8-16); BILIRUBIN,TOTAL 1.3 mg/dL (0.2-1.0); BLOOD UREA NITROGEN 36 mg/dL (7-18); CALCIUM 8.7 mg/dL (8.5-10.1); CHLORIDE 111 mmol/L (98-107); CO2 24 mmol/L (21-32); CREATININE 1.6 mg/dL (0.7-1.3); GLUCOSE,RANDOM 89 mg/dL (74-106); SGOT/AST 27 U/L (15-37); SGPT/ALT 15 U/L (12-78); SODIUM 140 mmol/L (136-145); TOT PROT 8.8 g/dl (6.4-8.2)
[2017-10-08 03:36] LABS: POTASSIUM 6.1 mmol/L (3.5-5.1)
[2017-10-08 04:14] LABS: MEAN PLT VOLUME 8.1 fl (7.5-11.1); PLATELET COUNT 52 K/MM3 (134-434)
== END | disposition left against medical advice (07) ==
LOC: JER 23:05
PROC: 3E0333Z Introduction of Anti-inflammatory into Peripheral Vein, Percutaneous Approach (ICD-10-PCS; principal; 2017-10-07)
DX: F11.20 Opioid dependence, uncomplicated (principal); Z94.4 Liver transplant status
CPT/HCPCS: 36415; 80053; 85025; 99281-25

== ENCOUNTER 2017-10-24 20:03 | Emergency (ER) | payer OTHER ==
[2017-10-24 20:18] VITALS: BMI 23.5
--- NOTE | 2017-10-24 20:18 | PDOC ---
Rapid Medical Evaluation Time Seen by Provider: 10/24/17 20:14 Medical Evaluation: Allergies Allergy/AdvReac Type Severity Reaction Status Date / Time No Known Allergies Allergy Verified 01/02/17 20:04 10/24/17 20:14 I have performed a brief in-person person evaluation of the patient. The patient presents with a chief complaint of need for heroin detox. Admits to heroin last use this am. States history of hepatitis c and takes a blood thinner, unclear history. States chronic body aching but having no other symptoms at present. States smoker and no other drug use Pertinent physical exam findings: NAD Lungs clear bilaterally heart s1s2 abdomen non tender I have ordered the following: labs ordered The patient will proceed to the ED for further evaluation. 10/24/17 20:19
[2017-10-24 20:58] LABS: BASO % 0.9 % (0-2.0); EOS % 12.4 % (0-4.5); HEMATOCRIT 31.5 % (35.4-49); HEMOGLOBIN 10.8 GM/dL (11.7-16.9); LYMPH % 24.5 % (8-40); MCH 30.8 pg (25.7-33.7); MCHC 34.3 g/dl (32.0-35.9); MEAN CELL VOLUME 89.8 fl (80-96); MEAN PLT VOLUME 8.3 fl (7.5-11.1); MONO % 14.7 % (3.8-10.2); NEUT % 47.5 % (42.8-82.8); PLATELET COUNT 43 K/MM3 (134-434); RDW 14.3 % (11.9-15.9); WHITE BLOOD COUNT 2.3 K/mm3 (4.0-10.0)
[2017-10-24 21:12] LABS: COCAINE, UR NEGATIVE ng/ml (CUTOFF=300); METHADONE, UR NEGATIVE ng/ml (CUTOFF=300); PHENCYCLIDINE,URINE NEGATIVE ng/ml (CUTOFF=25); URINE AMPHETAMINES NEGATIVE ng/ml (CUTOFF=500); URINE BARBITURATES NEGATIVE ng/ml (CUTOFF=200); URINE BENZODIAZEPINES NEGATIVE ng/ml (CUTOFF=200)
[2017-10-24 21:16] LABS: OPIATES, URI POSITIVE ng/ml (CUTOFF=300)
[2017-10-24 21:28] LABS: INR 1.23 (0.82-1.09); PROTHROMBIN TIME (PATIENT) 13.9 SEC (9.98-11.88)
[2017-10-24 21:31] LABS: ACTIVATED PTT 36.4 SECONDS (26.9-34.4)
[2017-10-24 21:38] LABS: ALBUMIN 3.3 g/dl (3.4-5.0); ANION GAP 7 (8-16); BLOOD UREA NITROGEN 29 mg/dL (7-18); CALCIUM 7.8 mg/dL (8.5-10.1); CHLORIDE 114 mmol/L (98-107); CO2 22 mmol/L (21-32); GLUCOSE,RANDOM 97 mg/dL (74-106); POTASSIUM 5.4 mmol/L (3.5-5.1); SODIUM 143 mmol/L (136-145)
[2017-10-24 21:41] LABS: ALK PHOS 103 U/L (45-117); BILIRUBIN,TOTAL 0.7 mg/dL (0.2-1.0); CREATININE 1.4 mg/dL (0.7-1.3); SGOT/AST 22 U/L (15-37); SGPT/ALT 19 U/L (12-78); TOT PROT 8.3 g/dl (6.4-8.2)
--- NOTE | 2017-10-24 22:04 | PDOC ---
History of Present Illness <Tea Jimenez - Last Filed: 10/24/17 22:38> - General History Source: Patient, Old Records Exam Limitations: No Limitations - History of Present Illness Initial Comments: 10/24/17 22:11 The patient is a 56 year old male, with a significant past medical history of Hepatitis C (Obtained via blood transfusion) (Liver transplant 10 years ago), DVT (on Lovenox), alcohol abuse with seizures and Heroin abuse, who presents to the emergency department inquiring about heroin detox. He reports that he has been using heroin daily, which he snorts, last use was today. He notes that he went to [facility] detox today and was turned away due to lack of male beds. The patient denies chest pain, shortness of breath, headache and dizziness. Denies fever, chills, nausea, vomit, diarrhea and constipation. Denies dysuria, frequency, urgency and hematuria. Allergies: None Past surgical history: left hip replacement 2000, liver transplant 2005 Social history: Heroin use. <Dl Joseph - Last Filed: 10/24/17 22:52> - General Chief Complaint: Pain Stated Complaint: DETOX Time Seen by Provider: 10/24/17 20:14 Past History - Past Medical History Anemia: No Asthma: No Cancer: No Cardiac Disorders: No CVA: No COPD: No CHF: No Dementia: No Diabetes: No GI Disorders: No Disorders: No HTN: No Hypercholesterolemia: No Kidney Stones: No Liver Disease: Yes (hx liver transplant 2005 [facility]) Seizures: Yes (etoh r/t x 1) Thyroid Disease: No - Surgical History Abdominal Surgery: Yes (liver transplant IN 2005 [facility]) Appendectomy: No Cardiac Surgery: No Cholecystectomy: No Lung Surgery: No Neurologic Surgery: No Orthopedic Surgery: Yes (left hip replacement 2000) - Reproductive History Testicular Surgery: No - Immunization History Immunization Up to Date: Yes - Suicide/Smoking/Psychosocial Hx Smoking History: Current every day smoker Have you smoked in the past 12 months: Yes Number of Cigarettes Smoked Daily: 20 Information on smoking cessation initiated: No 'Breaking Loose' booklet given: 01/02/17 Hx Alcohol Use: No Drug/Substance Use Hx: Yes (Heroine) Substance Use Type: Alcohol, Heroin Hx Substance Use Treatment: Yes <Tea Jimenez - Last Filed: 10/24/17 22:38> <Dl Joseph - Last Filed: 10/24/17 22:52> - Past Medical History Allergies/Adverse Reactions: Allergies Allergy/AdvReac Type Severity Reaction Status Date / Time No Known Allergies Allergy Verified 10/24/17 20:14 Home Medications: Ambulatory Orders Tacrolimus [Prograf] 1 mg PO BID 09/04/16 Enoxaparin Sodium [Lovenox] 30 mg SQ DAILY 09/05/16 Nadolol [Corgard -] 20 mg PO BID 01/02/17 Esomeprazole Magnesium [Nexium 24Hr] 20 mg PO DAILY 10/07/17 Review of Systems - Review of Systems Able to Perform ROS?: Yes Comments:: 10/24/17 22:11 GENERAL/CONSTITUTIONAL: No fever or chills. No weakness. HEAD, EYES, EARS, NOSE AND THROAT: No change in vision. No ear pain or discharge. No sore throat. CARDIOVASCULAR: No chest pain or shortness of breath RESPIRATORY: No cough, wheezing, or hemoptysis. GASTROINTESTINAL: No nausea, vomiting, diarrhea or constipation. GENITOURINARY: No dysuria, frequency, or change in urination. MUSCULOSKELETAL: No joint or muscle swelling or pain. No neck or back pain. SKIN: No rash NEUROLOGIC: No headache, vertigo, loss of consciousness, or change in strength/ sensation. ENDOCRINE: No increased thirst. No abnormal weight change HEMATOLOGIC/LYMPHATIC: No anemia, easy bleeding, or history of blood clots. ALLERGIC/IMMUNOLOGIC: No hives or skin allergy. <Dl Joseph - Last Filed: 10/24/17 22:52> *Physical Exam - Vital Signs Last Vital Signs Temp Pulse Resp BP Pulse Ox 97.7 F 58 L 18 186/92 100 10/24/17 20:15 10/24/17 20:15 10/24/17 20:15 10/24/17 20:15 10/24/17 20:15 <Tea Jimenez - Last Filed: 10/24/17 22:38> - Vital Signs Last Vital Signs Temp Pulse Resp BP Pulse Ox 97.7 F 58 L 18 186/92 100 10/24/17 20:15 10/24/17 20:15 10/24/17 20:15 10/24/17 20:15 10/24/17 20:15 - Physical Exam Comments: 10/24/17 22:11 GENERAL: Awake, alert, and fully oriented, in no acute distress HEAD: No signs of trauma, normocephalic, atraumatic EYES: PERRLA, EOMI, sclera anicteric, conjunctiva clear ENT: Auricles normal inspection, hearing grossly normal, nares patent, oropharynx clear without exudates. Moist mucosa NECK: Normal ROM, supple, no lymphadenopathy, JVD, or masses LUNGS: No distress, speaks full sentences, clear to auscultation bilaterally HEART: Regular rate and rhythm, normal S1 and S2, no murmurs, rubs or gallops, peripheral pulses normal and equal bilaterally. ABDOMEN: Soft, nontender, normoactive bowel sounds. No guarding, no rebound. No masses EXTREMITIES : Normal inspection, Normal range of motion, no edema. No clubbing or cyanosis. NEUROLOGICAL: Cranial nerves II through XII grossly intact. Normal speech, normal gait, no focal sensorimotor deficits SKIN: Warm, Dry, normal turgor, no rashes or lesions noted <Dl Joseph - Last Filed: 10/24/17 22:52> ED Treatment Course - LABORATORY CBC & Chemistry Diagram: 10/24/17 20:28 10/24/17 20:28 - ADDITIONAL ORDERS Additional order review: Laboratory Results 10/24/17 10/24/17 20:33 20:28 Sodium 143 Potassium 5.4 H Chloride 114 H Carbon Dioxide 22 Anion Gap 7 L BUN 29 H Creatinine 1.4 H Creat Clearance w eGFR 52.62 Random Glucose 97 Calcium 7.8 L Total Bilirubin 0.7 D AST 22 ALT 19 D Alkaline Phosphatase 103 Total Protein 8.3 H Albumin 3.3 L Opiates Screen Positive Methadone Screen Negative Barbiturate Screen Negative Phencyclidine Screen Negative Ur Amphetamines Screen Negative MDMA (Ecstasy) Screen Negative Benzodiazepines Screen Negative Cocaine Screen Negative U Marijuana (THC) Screen Negative 10/24/17 20:28 RBC 3.50 L MCV 89.8 MCHC 34.3 RDW 14.3 MPV 8.3 Neutrophils % 47.5 D Lymphocytes % 24.5 D Monocytes % 14.7 H Eosinophils % 12.4 H D Basophils % 0.9 <Tea Jimenez - Last Filed: 10/24/17 22:38> - LABORATORY CBC & Chemistry Diagram: 10/24/17 20:28 10/24/17 20:28 - ADDITIONAL ORDERS Additional order review: Laboratory Results 10/24/17 10/24/17 20:33 20:28 Sodium 143 Potassium 5.4 H Chloride 114 H Carbon Dioxide 22 Anion Gap 7 L BUN 29 H Creatinine 1.4 H Creat Clearance w eGFR 52.62 Random Glucose 97 Calcium 7.8 L Total Bilirubin 0.7 D AST 22 ALT 19 D Alkaline Phosphatase 103 Total Protein 8.3 H Albumin 3.3 L Opiates Screen Positive Methadone Screen Negative Barbiturate Screen Negative Phencyclidine Screen Negative Ur Amphetamines Screen Negative MDMA (Ecstasy) Screen Negative Benzodiazepines Screen Negative Cocaine Screen Negative U Marijuana (THC) Screen Negative 10/24/17 20:28 RBC 3.50 L MCV 89.8 MCHC 34.3 RDW 14.3 MPV 8.3 Neutrophils % 47.5 D Lymphocytes % 24.5 D Monocytes % 14.7 H Eosinophils % 12.4 H D Basophils % 0.9 <Dl Joseph - Last Filed: 10/24/17 22:52> Medical Decision Making - Medical Decision Making 10/24/17 22:05 56-year-old male with past medical history of anemia, liver transplant [facility] 2006, portal vein, clot from 3 years ago on Lovenox, heroin user, pancytopenia. PCP is Dr. Mclean with [phone] I'm reviewing his old chart from 09/05/2016 when they discussed his labs with member services coordinator Adelina Lassiter covering for Dr. Peterson and baseline. His hemoglobin is between 8.5 and 10. Platelets are between 36 and 43,000. 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 He has no fever, no chills, no abdominal pain, no chest pain. He is requesting heroin detox. I called over to [facility] and there are no beds available this evening. Patient instructed to bring his identification and his insurance card [address] [place] [address] and present at intake at 8 am. 10/24/17 22:37 he took kayexalate for his potassium of 5.4 <Tea Jimenez - Last Filed: 10/24/17 22:38> *DC/Admit/Observation/Transfer <Tea Jimenez - Last Filed: 10/24/17 22:38> - Attestations Scribe Attestion: 10/24/17 22:11 Documentation prepared by Dl Joseph, acting as electromedical equipment repairer for Tea Jimenez MD <Dl Joseph - Last Filed: 10/24/17 22:52> Diagnosis at time of Disposition: Heroin addiction, History of liver transplant, History of pancytopenia - Discharge Dispostion Disposition: HOME Condition at time of disposition: Stable - Referrals Referrals: ON STAFF,NOT [Primary Care Provider] - - Patient Instructions Printed Discharge Instructions: DI for Drug Abuse and Drug Addiction Additional Instructions: please go to [facility] detox at 8 AM tomorrow and bring your insurance information and identification also bring all your medications - Post Discharge Activity
[2017-10-24] MEDS ORDERED: SODIUM POLYSTYRENE SULFONATE 15 GM/60 ML BOTTLE PO ONE (22:09)
[2017-10-24 22:46] LABS: PLATELET ESTIMATE DECREASED
[2017-10-24 22:59] VITALS: BP 161/93; PULSE 57; TEMP 97.8
== END 2017-10-24 22:59 | disposition home or self-care (01) ==
LOC: JER 20:03
DX: Z02.89 Encounter for other administrative examinations (principal); F11.20 Opioid dependence, uncomplicated; Z94.4 Liver transplant status; F17.210 Nicotine dependence, cigarettes, uncomplicated
CPT/HCPCS: 36415; 80053; 80307; 85025; 85610; 85730; 99282-25

== ENCOUNTER 2017-10-26 10:27 | Inpatient (IN) | payer OTHER ==
[2017-10-26 13:54] VITALS: BMI 22.5
--- NOTE | 2017-10-26 14:16 | HP ---
COWS - Scale Resting Pulse: 0= NM 80 or Below Sweatin=Flushed/Facial Moisture Restless Observation: 3= Extraneous Movement Pupil Size: 1= Pupils >than Normal Bone or Joint Aches: 2= Severe Diffuse Aches Runny Nose/ Eye Tearin= Runny Nose/Eyes GI Upset > 30mins: 3= Vomiting/Diarrhea Tremor Observation: 2= Slight Tremor Visible Yawning Observation: 1= 1-2x During Session Anxiety or Irritability: 2=Irritable/Anxious Goose Flesh Skin: 0=Smooth Skin COWS Score: 18 Admission ROS S - HPI Chief Complaint: i need help to stop using heroin Allergies/Adverse Reactions: Allergies Allergy/AdvReac Type Severity Reaction Status Date / Time No Known Allergies Allergy Verified 10/24/17 20:14 History of Present Illness: this 56 years old male with heroin dependence,seeking detox,withdrawal symptom, lst treatment [facility] 01/02/17 tp 01/06/17 hepatitis c treated cirrhosis of liver s/p liver transplantation in 2005 weight loss longest period of sobriety 10 years Exam Limitations: No Limitations - Ebola screening Have you traveled outside of the country in the last 21 days: No (N) Have you had contact with anyone from an Ebola affected area: No Have you been sick,other than usual withdrawal symptoms: No Do you have a fever: No - Review of Systems Constitutional: Loss of Appetite, Malaise, Night Sweats, Changes in sleep, Weakness EENT: reports: Nose Congestion Respiratory: reports: No Symptoms reported Cardiac: reports: No Symptoms Reported GI: reports: Nausea, Vomiting, Abdominal cramping : reports: No Symptoms Reported Musculoskeletal: reports: Back Pain, Muscle Pain Integumentary: reports: Dryness Neuro: reports: Headache, Tremors Endocrine: reports: No Symptoms Reported Hematology: reports: No Symptoms Reported Psychiatric: reports: No Sypmtoms Reported Other Systems: Reviewed and Negative Patient History - Patient Medical History Hx Anemia: No Hx Asthma: No Hx Chronic Obstructive Pulmonary Disease (COPD): No Hx Cancer: No Hx Cardiac Disorders: No Hx Congestive Heart Failure: No Hx Hypertension: No Hx Hypercholesterolemia: No Hx Pacemaker: No HX Cerebrovascular Accident: No Hx Seizures: Yes (etoh r/t x 1) Hx Dementia: No Hx Diabetes: No Hx Gastrointestinal Disorders: No Hx Liver Disease: Yes (hx liver transplant 2005 [facility]) Hx Genitourinary Disorders: No Hx Sexually Transmitted Disorders: No Hx Renal Disease (ESRD): No Hx Thyroid Disease: No Hx Human Immunodeficiency Virus (HIV): No (LAST 07/07 NEGATIVE) Hx Hepatitis C: No Hx Depression: Yes Hx Suicide Attempt: No Hx Bipolar Disorder: No Hx Schizophrenia: No - Patient Surgical History Past Surgical History: Yes Hx Neurologic Surgery: No Hx Cataract Extraction: No Hx Cardiac Surgery: No Hx Lung Surgery: No Hx Breast Surgery: No Hx Breast Biopsy: No Hx Abdominal Surgery: Yes (liver transplant IN 2005 [facility]) Hx Appendectomy: No Hx Cholecystectomy: No Hx Genitourinary Surgery: No Hx Orthopedic Surgery: Yes (left hip replacement 2000) Anesthesia Reaction: No - PPD History Date: 01/04/17 Results: NO READING - Smoking Cessation Smoking history: Current every day smoker Have you smoked in the past 12 months: Yes Aproximately how many cigarettes per day: 20 Hx Chewing Tobacco Use: No Initiated information on smoking cessation: Yes 'Breaking Loose' booklet given: 10/26/17 - Substance & Tx. History Hx Alcohol Use: No Hx Substance Use: Yes Substance Use Type: Heroin Hx Substance Use Treatment: Yes (last [facility] 01/02/17 to 01/06/17) - Substances Abused Heroin Route: Inhalation Frequency: Daily Amount used: 10 bags Age of first use: 33 Date of Last Use: 10/25/17 Family Disease History - Family Disease History Family Disease History: Heart Disease: Father (,), Other: Father Admission Physical Exam BHS - Vital Signs Vital Signs: Vital Signs - 24 hr 10/26/17 13:52 Temperature 97.0 F L Pulse Rate 69 Respiratory 20 Rate Blood Pressure 160/100 - Physical General Appearance: Yes: Moderate Distress, Tremorous, Irritable, Anxious HEENTM: Yes: BRYAN, Pharynx Normal, Nasal Congestion Respiratory: Yes: Lungs Clear, Normal Breath Sounds, No Respiratory Distress Neck: Yes: No masses,lesions,Nodules, Supple, Trachea in good position Breast: Yes: Within Normal Limits Cardiology: Yes: Within Normal Limits, Regular Rhythm, Regular Rate, S1, S2 Abdominal: Yes: Within Normal Limits, Normal Bowel Sounds, Flat, Soft, Surgical Scar Genitourinary: Yes: Within Normal Limits Back: Yes: Muscle Spasm Musculoskeletal: Yes: full range of Motion, Back pain, Joint Stiffness, Muscle Pain Extremities: Yes: Tremors Neurological: Yes: tunnel inspector II-XII NML intact, Fully Oriented, Alert, Motor Strength 5/5 Integumentary: Yes: Dry Lymphatic: Yes: Within Normal Limits - Diagnostic (1) Alcohol related seizure Current Visit: No Status: Acute (2) History of left hip replacement Current Visit: No Status: Acute (3) History of portal hypertension Current Visit: No Status: Acute (4) Opioid dependence with withdrawal Current Visit: No Status: Acute (5) Weight loss Current Visit: No Status: Acute (6) History of liver transplant Current Visit: No Status: Chronic (7) Nicotine dependence Current Visit: No Status: Chronic Qualifiers: Nicotine product type: cigarettes Substance use status: uncomplicated Qualified Code(s): F17.210 - Nicotine dependence, cigarettes, uncomplicated Cleared for Admission [facility] - Detox or Rehab [facility] Level of Care: Medically Managed Detox Regimen/Protocol: Methadone [facility] Breath Alcohol Content Breath Alcohol Content: 0 Urine Drug Screen - Results Drug Screen Negative: No Urine Drug Screen Results: OPI-Opiates, BZO-Benzodiazepines, OXY-Oxycodone
[2017-10-26] MEDS ORDERED: MAG HYDROX/AL HYDROX/SIMETH 30 ML UNIT-DOSE CUP PO PRN (14:26)
[2017-10-26] MEDS ORDERED: MAGNESIUM HYDROX 2400MG/30ML ORAL SUSPENSION 30 ML CUP PO PRN (14:26)
[2017-10-26] MEDS ORDERED: P-EPHED 60MG/TRIPROLIDI 2.5MG TABLET PO PRN (14:26)
[2017-10-26] MEDS ORDERED: MENTHOL/PHENOL 1 EACH UD MM PRN (14:26)
[2017-10-26] MEDS ORDERED: IBUPROFEN 400 MG TABLET (FP) PO PRN (14:26)
[2017-10-26] MEDS ORDERED: LOPERAMIDE HCL 2 MG CAPSULE PO PRN (14:26)
[2017-10-26] MEDS ORDERED: guaiFENesin/D-METHORPHAN HB 10 ML UNIT-DOSE CUPS PO PRN (14:26)
[2017-10-26] MEDS ORDERED: ACETAMINOPHEN 325 MG TABLET (FP) PO PRN (14:26)
[2017-10-26] MEDS ORDERED: MAGNESIUM CITRATE 300 ML BOTTLE PO PRN (14:26)
[2017-10-26] MEDS ORDERED: METHADONE HCL 10 MG TABLET (FOR DETOX USE ONLY) PO ONE ×2 (15:00→23:00)
[2017-10-26] MEDS: diazePAM 5 MG TABLET PO PRN (17:40)
[2017-10-26] MEDS: NADOLOL 20 MG TABLET (FP) PO SCH (22:20)
[2017-10-26] MEDS: THIAMINE HCL 100 MG TABLET (FP) PO SCH (22:20)
[2017-10-26] MEDS: TACROLIMUS ANHYDROUS 1 MG CAPSULE PO SCH (22:20)
[2017-10-26 22:49] LABS: URINE APPEARANCE CLEAR; URINE BILIRUBIN NEGATIVE (NEGATIVE); URINE BLOOD NEGATIVE (NEGATIVE); URINE COLOR YELLOW; URINE GLUCOSE (UA) NEGATIVE (NEGATIVE); URINE KETONE NEGATIVE (NEGATIVE); URINE LEUK ESTERASE NEGATIVE (NEGATIVE); URINE NITRITE NEGATIVE (NEGATIVE)
[2017-10-26 22:54] LABS: URINE PROTEIN 2+ (NEGATIVE)
[2017-10-26 23:13] LABS: URINE MUCUS RARE
[2017-10-27] MEDS ORDERED: METHADONE HCL 10 MG TABLET (FOR DETOX USE ONLY) PO ONE (10:00)
--- NOTE | 2017-10-27 10:02 | CONSULT ---
[facility] Psychiatric Consult - Data Date of interview: 10/27/17 Admission source: [facility] Identifying data: Pt. is a 56 year old male, unemployed, resides in an apartment in an apartment by himself and his source of income is provided by disability. This is one of multiple admissions for patient. Pt. admitted to for opioid dependence. Substance Abuse History: Following information confirmed with Mr. Grove: Smoking Cessation. Smoking history: Current every day smoker. Have you smoked in the past 12 months: Yes. Aproximately how many cigarettes per day: 20. Hx Chewing Tobacco Use: No. Initiated information on smoking cessation: Yes. ' Breaking Loose' booklet given: 10/26/17. - Substance & Tx. History. Hx Alcohol Use: No. Hx Substance Use: Yes. Substance Use Type: Heroin. Hx Substance Use Treatment: Yes (last [facility] 01/02/17 to 01/06/17). - Substances Abused. Heroin. Route: Inhalation. Frequency: Daily. Amount used: 10 bags. Age of first use: 33. Date of Last Use: 10/25/17 Medical History: Seizures (r/t etoh), Liver transplant 2005, Left hip replacement in 2005. Psychiatric History: Pt. denies h/o psychiatric hospitalizations, suicide attempts, and outpatient care. Physical/Sexual Abuse/Trauma History: Denies. Mental Status Exam - Mental Status Exam Alert and Oriented to: Time, Place, Person Cognitive Function: Good Patient Appearance: Well Groomed Mood: Withdrawn Affect: Mood Congruent Patient Behavior: Guarded Speech Pattern: Appropriate Voice Loudness: Moderately Soft/Quiet Thought Process: Goal Oriented Thought Disorder: Not Present Hallucinations: Denies Suicidal Ideation: Denies Homicidal Ideation: Denies Insight/Judgement: Fair Sleep: Fair Appetite: Good, Fair Muscle strength/Tone: Normal Gait/Station: Normal Psychiatric Findings - Problem List ([place] 1, 2,3) (1) Opioid dependence with withdrawal Current Visit: Yes Status: Acute (2) Nicotine dependence Current Visit: Yes Status: Chronic Qualifiers: Nicotine product type: cigarettes Substance use status: uncomplicated Qualified Code(s): F17.210 - Nicotine dependence, cigarettes, uncomplicated (3) Uncomplicated opioid dependence Current Visit: Yes Status: Chronic (4) Drug-induced mood disorder Current Visit: Yes Status: Suspected - Initial Treatment Plan Initial Treatment Plan: Psychoeducation provided. Detoxification provided. Observation.
[2017-10-27 10:19] LABS: INR 1.41 (0.82-1.09); PROTHROMBIN TIME (PATIENT) 15.9 SEC (9.98-11.88)
[2017-10-27] MEDS: PRENATAL VITAMINS W/ FOLIC ACID TABLET (FP) PO SCH (10:19)
[2017-10-27] MEDS: TACROLIMUS ANHYDROUS 1 MG CAPSULE PO SCH ×2 (10:19→22:33)
[2017-10-27] MEDS: PATIENT'S OWN MEDICATION (NON-FORMULARY) (Esomeprazole Magnesium [Nexium 24hr] 40 MG) PO SCH (10:20)
[2017-10-27] MEDS: NADOLOL 20 MG TABLET (FP) PO SCH ×2 (10:20→22:33)
[2017-10-27] MEDS: ENOXAPARIN NA (PORCINE) 30 MG/0.3 ML DISP.SYRIN SQ SCH (10:21)
[2017-10-27 10:26] LABS: ALBUMIN 2.7 g/dl (3.4-5.0); ANION GAP 8 (8-16); BLOOD UREA NITROGEN 23 mg/dL (7-18); CHLORIDE 113 mmol/L (98-107); CO2 22 mmol/L (21-32); GLUCOSE,RANDOM 83 mg/dL (74-106); SGPT/ALT 16 U/L (12-78); SODIUM 143 mmol/L (136-145)
[2017-10-27 10:29] LABS: ALK PHOS 81 U/L (45-117); BILIRUBIN,TOTAL 0.7 mg/dL (0.2-1.0); CREATININE 1.1 mg/dL (0.7-1.3); SGOT/AST 22 U/L (15-37); TOT PROT 7.2 g/dl (6.4-8.2)
[2017-10-27 10:39] LABS: HEMATOCRIT 24.8 % (35.4-49); HEMOGLOBIN 8.6 GM/dL (11.7-16.9); MCH 30.8 pg (25.7-33.7); MCHC 34.8 g/dl (32.0-35.9); MEAN CELL VOLUME 88.5 fl (80-96); MEAN PLT VOLUME 8.6 fl (7.5-11.1); RDW 13.9 % (11.9-15.9)
[2017-10-27 11:06] LABS: PLATELET COUNT 33 K/MM3 (134-434); WHITE BLOOD COUNT 1.5 K/mm3 (4.0-10.0)
--- NOTE | 2017-10-27 12:27 | EKG ---
Test Reason : Blood Pressure : / mmHG Vent. Rate : 061 BPM Atrial Rate : 061 BPM P-R Int : 196 ms QRS Dur : 130 ms QT Int : 456 ms P-R-T Axes : 040 -14 010 degrees QTc Int : 459 ms NORMAL SINUS RHYTHM RIGHT BUNDLE BRANCH BLOCK ABNORMAL ECG WHEN COMPARED WITH ECG OF 02-JAN-2017 19:27, MINIMAL CRITERIA FOR INFERIOR INFARCT ARE NO LONGER PRESENT Confirmed by RELL JONES, OFELIA ([id number]) on 10/27/2017 12:27:09 PM Referred By: Eber CLARK Confirmed By:OFELIA ZACARIAS MD
--- NOTE | 2017-10-27 12:38 | PN ---
BHS COWS - Scale Resting Pulse: 0= [place] 80 or Below Sweatin= Chills/Flushing Restless Observation: 3= Extraneous Movement Pupil Size: 2= Moderately Dilated Bone or Joint Aches: 4=Acute Joint/Muscle Pain Runny Nose/ Eye Tearin= Nasal Congestion GI Upset > 30mins: 0= None Tremor Observation of Outstretched Hands: 2= Slight Tremor Visible Yawning Observation: 1= 1-2x During Session Anxiety or Irritability: 2=Irritable/Anxious Goose Flesh Skin: 0=Smooth Skin COWS Score: 16 BHS Progress Note (SOAP) Subjective: ANXIETY,TREMORS,SWEATS/CHILLS,INTERMITTENT SLEEP. ALERT O X 3. NAD.PT REFUSING HIS DOSE OF LOVENOX AT 10 AM TODAY BECAUSE DOES NOT LIKE THE WAY THE NEEDLE FEELS. REPORTS "THAT'S WHY I HAVE NOT TAKEN IT FOR PAST THREE DAYS. PT ALSO REPORTS HE SAW HIS PMD DR VERITO GARCIA AT [facility] LAST WEEK AND BLOOD WORK WAS DONE BUT IS NOT AWARE OF THE RESULTS. Objective: 10/27/17 12:36 Vital Signs Temperature 98.6 F 10/27/17 09:29 Pulse Rate 61 10/27/17 09:29 Respiratory Rate 18 10/27/17 09:29 Blood Pressure 137/74 10/27/17 09:29 O2 Sat by Pulse Oximetry (%) Laboratory Last Values WBC 1.5 K/mm3 (4.0-10.0) L* D 10/27/17 07:30 RBC 2.80 M/mm3 (4.00-5.60) L 10/27/17 07:30 Hgb 8.6 GM/dL (11.7-16.9) L D 10/27/17 07:30 Hct 24.8 % (35.4-49) L D 10/27/17 07:30 MCV 88.5 fl (80-96) 10/27/17 07:30 MCH 30.8 pg (25.7-33.7) 10/27/17 07:30 MCHC 34.8 g/dl (32.0-35.9) 10/27/17 07:30 RDW 13.9 % (11.9-15.9) 10/27/17 07:30 Plt Count 33 K/MM3 (134-434) L* D 10/27/17 07:30 MPV 8.6 fl (7.5-11.1) 10/27/17 07:30 PT with INR 15.90 SEC (9.98-11.88) H 10/27/17 07:30 INR 1.41 (0.82-1.09) H 10/27/17 07:30 Sodium 143 mmol/L (136-145) 10/27/17 07:30 Potassium 5.0 mmol/L (3.5-5.1) 10/27/17 07:30 Chloride 113 mmol/L (98-107) H 10/27/17 07:30 Carbon Dioxide 22 mmol/L (21-32) 10/27/17 07:30 Anion Gap 8 (8-16) 10/27/17 07:30 BUN 23 mg/dL (7-18) H D 10/27/17 07:30 Creatinine 1.1 mg/dL (0.7-1.3) D 10/27/17 07:30 Creat Clearance w eGFR > 60 (>60) 10/27/17 07:30 Random Glucose 83 mg/dL (74-106) 10/27/17 07:30 Calcium 8.0 mg/dL (8.5-10.1) L 10/27/17 07:30 Total Bilirubin 0.7 mg/dL (0.2-1.0) 10/27/17 07:30 AST 22 U/L (15-37) 10/27/17 07:30 ALT 16 U/L (12-78) 10/27/17 07:30 Alkaline Phosphatase 81 U/L (45-117) D 10/27/17 07:30 Total Protein 7.2 g/dl (6.4-8.2) 10/27/17 07:30 Albumin 2.7 g/dl (3.4-5.0) L 10/27/17 07:30 Urine Color Yellow 10/26/17 19:45 Urine Appearance Clear 10/26/17 19:45 Urine pH 6.0 (5.0-8.0) 10/26/17 19:45 Ur Specific [place] 1.015 (1.001-1.035) 10/26/17 19:45 Urine Protein 2+ (NEGATIVE) H 10/26/17 19:45 Urine Glucose (UA) Negative (NEGATIVE) 10/26/17 19:45 Urine Ketones Negative (NEGATIVE) 10/26/17 19:45 Urine Blood Negative (NEGATIVE) 10/26/17 19:45 Urine Nitrite Negative (NEGATIVE) 10/26/17 19:45 Urine Bilirubin Negative (NEGATIVE) 10/26/17 19:45 Urine Urobilinogen 2.0 mg/dL (0.2-1.0) 10/26/17 19:45 Ur Leukocyte Esterase Negative (NEGATIVE) 10/26/17 19:45 Urine WBC (Auto) <1 /hpf (3-5) 10/26/17 19:45 Urine RBC (Auto) 2 /hpf (0-3) 10/26/17 19:45 Urine Mucus Rare 10/26/17 19:45 RPR Titer Nonreactive (NONREACTIVE) 10/27/17 07:30 HX PANCYTOPENIA LIVER TRANSPLANT IN 2005 LEFT HIP REPLACEMENT IN 2000 Assessment: 10/27/17 12:36 WITHDRAWAL SX Plan: CONTINUE DETOX MONITOR PATIENT REPEAT BLOOD WORK IN AM
[2017-10-27] MEDS: THIAMINE HCL 100 MG TABLET (FP) PO SCH (22:33)
[2017-10-27] MEDS: diazePAM 5 MG TABLET PO PRN (22:58)
[2017-10-28] MEDS: NADOLOL 20 MG TABLET (FP) PO SCH (09:35)
[2017-10-28] MEDS: PATIENT'S OWN MEDICATION (NON-FORMULARY) (Esomeprazole Magnesium [Nexium 24hr] 40 MG) PO SCH (09:35)
[2017-10-28] MEDS: TACROLIMUS ANHYDROUS 1 MG CAPSULE PO SCH (09:35)
[2017-10-28] MEDS: diazePAM 5 MG TABLET PO PRN ×2 (09:36→15:00)
[2017-10-28] MEDS: ENOXAPARIN NA (PORCINE) 30 MG/0.3 ML DISP.SYRIN SQ SCH (09:36)
[2017-10-28] MEDS: PRENATAL VITAMINS W/ FOLIC ACID TABLET (FP) PO SCH (09:37)
[2017-10-28] MEDS ORDERED: METHADONE HCL 5 MG TABLET (FOR DETOX USE ONLY) PO ONE (10:00)
[2017-10-28 10:33] LABS: ALBUMIN 2.9 g/dl (3.4-5.0); ANION GAP 6 (8-16); BILIRUBIN,TOTAL 1.1 mg/dL (0.2-1.0); BLOOD UREA NITROGEN 24 mg/dL (7-18); CALCIUM 7.8 mg/dL (8.5-10.1); CHLORIDE 113 mmol/L (98-107); CO2 23 mmol/L (21-32); GLUCOSE,RANDOM 76 mg/dL (74-106); POTASSIUM 5.1 mmol/L (3.5-5.1); SGOT/AST 22 U/L (15-37); SGPT/ALT 13 U/L (12-78); SODIUM 142 mmol/L (136-145)
[2017-10-28 10:34] LABS: ALK PHOS 80 U/L (45-117); TOT PROT 7.2 g/dl (6.4-8.2)
--- NOTE | 2017-10-28 10:43 | PN ---
BHS COWS - Scale Resting Pulse: 0= [place] 80 or Below Sweatin= Chills/Flushing Restless Observation: 3= Extraneous Movement Pupil Size: 0= Normal to Room Light Bone or Joint Aches: 4=Acute Joint/Muscle Pain Runny Nose/ Eye Tearin= Nasal Congestion GI Upset > 30mins: 1= Stomach Cramp Tremor Observation of Outstretched Hands: 1= Tremor [place], Not Seen Yawning Observation: 1= 1-2x During Session Anxiety or Irritability: 2=Irritable/Anxious Goose Flesh Skin: 0=Smooth Skin COWS Score: 14 BHS Progress Note (SOAP) Subjective: ANXIETY,IRRITABILITY,GENERALIZED BODY ACHES. DENIES NAUSEA,VOMITING,DIARRHEA. OOB WITH STEADY GAIT BUT WITH SLIGHT LIMP DUE TO PREVIOUS HIP SX.PT REFUSED LOVENOX DOSE TODAY AGAIN DUE TO CLAIM THAT THE NEEDLE ON THE PREFILL MEDICATION IS "DULL" AND SAYS THAT'S WHY HE IS NOT TAKING IT AT HOME EITHER. PT STATES HIS PRIMARY CARE PROVIDER(S) IS AWARE OF THE PROBLEM. Objective: 10/28/17 10:43 Vital Signs 10/28/17 10/28/17 10/28/17 03:30 06:17 10:37 Temperature 97 F L 96 F L Pulse Rate 60 63 Respiratory 18 18 18 Rate Blood Pressure 150/77 153/80 Laboratory Tests 10/26/17 10/27/17 10/27/17 19:45 07:30 07:30 WBC 1.5 L* D RBC 2.80 L Hgb 8.6 L D Hct 24.8 L D MCV 88.5 MCH 30.8 MCHC 34.8 RDW 13.9 Plt Count 33 L* D MPV 8.6 PT with INR INR Sodium 143 Potassium 5.0 Chloride 113 H Carbon Dioxide 22 Anion Gap 8 BUN 23 H D Creatinine 1.1 D Creat Clearance w eGFR > 60 Random Glucose 83 Calcium 8.0 L Total Bilirubin 0.7 AST 22 ALT 16 Alkaline Phosphatase 81 D Total Protein 7.2 Albumin 2.7 L Urine Color Yellow Urine Appearance Clear Urine pH 6.0 Ur Specific [place] 1.015 Urine Protein 2+ H Urine Glucose (UA) Negative Urine Ketones Negative Urine Blood Negative Urine Nitrite Negative Urine Bilirubin Negative Urine Urobilinogen 2.0 Ur Leukocyte Esterase Negative Urine WBC (Auto) <1 Urine RBC (Auto) 2 Urine Mucus Rare RPR Titer 10/27/17 10/27/17 10/28/17 07:30 07:30 07:00 WBC RBC Hgb Hct MCV MCH MCHC RDW Plt Count MPV PT with INR 15.90 H INR 1.41 H Sodium 142 Potassium 5.1 Chloride 113 H Carbon Dioxide 23 Anion Gap 6 L BUN 24 H Creatinine 1.0 Creat Clearance w eGFR > 60 Random Glucose 76 Calcium 7.8 L Total Bilirubin 1.1 H D AST 22 ALT 13 Alkaline Phosphatase 80 Total Protein 7.2 Albumin 2.9 L Urine Color Urine Appearance Urine pH Ur Specific [place] Urine Protein Urine Glucose (UA) Urine Ketones Urine Blood Urine Nitrite Urine Bilirubin Urine Urobilinogen Ur Leukocyte Esterase Urine WBC (Auto) Urine RBC (Auto) Urine Mucus RPR Titer Nonreactive 10/28/17 13:14 REPEAT LAB FOR TODAY: Laboratory Results - last 24 hr 10/28/17 10/28/17 10/28/17 07:00 07:00 07:00 WBC 1.9 L* RBC 2.94 L Hgb 9.0 L Hct 26.0 L MCV 88.4 MCH 30.8 MCHC 34.8 RDW 13.9 Plt Count 37 L MPV 8.3 PT with INR 15.30 H INR 1.35 H Sodium 142 Potassium 5.1 Chloride 113 H Carbon Dioxide 23 Anion Gap 6 L BUN 24 H Creatinine 1.0 Creat Clearance w eGFR > 60 Random Glucose 76 Calcium 7.8 L Total Bilirubin 1.1 H D AST 22 ALT 13 Alkaline Phosphatase 80 Total Protein 7.2 Albumin 2.9 L NO DECREASING CHANGE IN VALUES FROM PREVIOUS RESULTS. LAB RESULTS REVIEWED FROM 2017 COMPARED TO RECENT LABS APPEAR INSIGNIFICANTLY. PT WILL FOLLOW UP AFER DETOX WITH HIS PMD DR VERITO GARCIA AT [facility], [facility],[place], [place]. PH: [phone] Assessment: 10/28/17 10:44 WITHDRAWAL SX Plan: CONTINUE DETOX MONITOR PT
[2017-10-28 10:56] LABS: INR 1.35 (0.82-1.09); PROTHROMBIN TIME (PATIENT) 15.3 SEC (9.98-11.88)
[2017-10-28 11:07] LABS: MCH 30.8 pg (25.7-33.7); MCHC 34.8 g/dl (32.0-35.9); MEAN CELL VOLUME 88.4 fl (80-96); MEAN PLT VOLUME 8.3 fl (7.5-11.1); RBC 2.94 M/mm3 (4.00-5.60); RDW 13.9 % (11.9-15.9)
[2017-10-28 11:14] LABS: PLATELET COUNT 37 K/MM3 (134-434)
[2017-10-28 11:15] LABS: WHITE BLOOD COUNT 1.9 K/mm3 (4.0-10.0)
[2017-10-28 18:23] VITALS: BP 162/86; PULSE 59; TEMP 98.2
--- NOTE | 2017-10-28 20:13 | PN ---
S Progress Note Note: INFORMED CLIENT ELOPED
[2017-10-29] MEDS ORDERED: METHADONE HCL 5 MG TABLET (FOR DETOX USE ONLY) PO ONE (10:00)
[2017-10-30] MEDS ORDERED: METHADONE HCL 10 MG TABLET (FOR DETOX USE ONLY) PO ONE (10:00)
[2017-10-31] MEDS ORDERED: METHADONE HCL 5 MG TABLET (FOR DETOX USE ONLY) PO ONE (06:00)
== END 2017-10-28 20:07 | disposition left against medical advice (07) | DRG 894 ==
LOC: YASAS 10:27 → Y3N 14:39
PROVIDERS: ADMIT Internal Medicine; ATTEND Internal Medicine
PROC: HZ2ZZZZ Detoxification Services for Substance Abuse Treatment (ICD-10-PCS; principal; 2017-10-26)
DX: F11.23 Opioid dependence with withdrawal (principal); Z94.4 Liver transplant status; F17.213 Nicotine dependence, cigarettes, with withdrawal; F19.24 Other psychoactive substance dependence with psychoactive substance-induced mood disorder; Z86.79 Personal history of other diseases of the circulatory system; Z86.2 Personal history of diseases of the blood and blood-forming organs and certain disorders involving the immune mechanism; Z96.642 Presence of left artificial hip joint; Z86.69 Personal history of other diseases of the nervous system and sense organs; Z87.898 Personal history of other specified conditions
CPT/HCPCS: 36415; 80053; 81003; 81015; 85027; 85610; 86593; 93005; 93010

== ENCOUNTER 2018-04-24 14:46 | Emergency (ER) | payer OTHER ==
[2018-04-24 14:55] VITALS: BP 136/77; PULSE 60; TEMP 98.1; BMI 23.5
--- NOTE | 2018-04-24 15:38 | PDOC ---
History of Present Illness - General Chief Complaint: Substance Abuse Stated Complaint: DETOX Time Seen by Provider: 04/24/18 15:07 History Source: Patient Exam Limitations: No Limitations - History of Present Illness Initial Comments: 04/24/18 15:33 pt is a 57yo m with PMH of heroin dependence, HepC, cirrhosis, s/p liver transplant in 2005 presenting to ED for referral to detox. Pt said he started snorting heroin 1 week ago after a dental procedure which caused him trauma. Last use was this morning. He usually uses a couple of times/day. He drinks occasionally but denied drinking this morning. He denies other drug use or IV drug use. He sees Dr. Peterson for blood work he gets every month since the transplant. He denies withdrawal symptoms, fever, chills, changes in vision, abdominal pain, n/v/d, headache, urinary symptoms, SI and HI. PMH: see hpi PSH: Liver transplant Meds: Prograf, Lovenox, Nexium, nadalol Allergies: nkda Social: see hpi. 1ppd. Past History - Past Medical History Allergies/Adverse Reactions: Allergies Allergy/AdvReac Type Severity Reaction Status Date / Time No Known Allergies Allergy Verified 04/24/18 14:51 Home Medications: Ambulatory Orders Tacrolimus [Prograf] 1 mg PO BID 09/04/16 Enoxaparin Sodium [Lovenox] 30 mg SQ DAILY 09/05/16 Nadolol [Corgard -] 20 mg PO BID 01/02/17 Esomeprazole Magnesium [Nexium 24Hr] 40 mg PO DAILY 10/07/17 Anemia: No Asthma: No Cancer: No Cardiac Disorders: No CVA: No COPD: No CHF: No DVT: No Dementia: No Diabetes: No GI Disorders: No Disorders: No HTN: No Hypercholesterolemia: No Kidney Stones: No Liver Disease: Yes (hx liver transplant 2005 [facility]) Seizures: Yes (etoh r/t x 1) Thyroid Disease: No - Surgical History Abdominal Surgery: Yes (liver transplant IN 2005 [facility]) Appendectomy: No Cardiac Surgery: No Cholecystectomy: No Lung Surgery: No Neurologic Surgery: No Orthopedic Surgery: Yes (left hip replacement 2000) - Reproductive History Testicular Surgery: No - Immunization History Immunization Up to Date: Yes - Suicide/Smoking/Psychosocial Hx Smoking History: Current every day smoker Have you smoked in the past 12 months: Yes Number of Cigarettes Smoked Daily: 20 Information on smoking cessation initiated: Yes 'Breaking Loose' booklet given: 04/24/18 Hx Alcohol Use: No Drug/Substance Use Hx: Yes (HEROIN) Substance Use Type: Heroin Hx Substance Use Treatment: Yes (last [facility] 01/02/17 to 01/06/17) *Physical Exam - Vital Signs Last Vital Signs Temp Pulse Resp BP Pulse Ox 98.1 F 60 18 136/77 100 04/24/18 14:51 04/24/18 14:51 04/24/18 14:51 04/24/18 14:51 04/24/18 14:51 Medical Decision Making - Medical Decision Making 04/24/18 15:38 pt is a 57yo m with PMH of heroin dependence, HepC, cirrhosis, s/p liver transplant in 2005 presenting to ED for referral to detox. Pt unable to fill his prescriptions today because of the holiday, and wants to go to detox tomorrow after he gets his medications. *DC/Admit/Observation/Transfer Diagnosis at time of Disposition: Uncomplicated opioid dependence - Discharge Dispostion Disposition: HOME Condition at time of disposition: Stable Decision to Admit order: No - Referrals Referrals: Prisca Garcia [Primary Care Provider] - - Patient Instructions Printed Discharge Instructions: DI for Drug Abuse and Drug Addiction Additional Instructions: You were seen here today for referral to [facility]. Please pear picker your prescriptions tomorrow and bring your identification cards and insurance to detox. The address is [address] [place] [address]. Please come back to the ED if: you start using again, if you are going through withdrawal, if you have any suicidal or homicidal ideations or if any new concerning symptom develops. Thank you - Post Discharge Activity
--- NOTE | 2018-04-24 15:52 | PDOC ---
Attending Attestation - Resident Resident Name: Mesha Gandhi - ED Attending Attestation I have performed the following: I have examined & evaluated the patient, The case was reviewed & discussed with the resident, I agree w/resident's findings & plan, Exceptions are as noted - HPI HPI: 04/24/18 16:01 The patient is a 57 year old male, with a significant past medical history of Hepatitis C (Obtained via blood transfusion) (Liver transplant 12 years ago), DVT, alcohol abuse with seizures and heroin abuse, who presents to the emergency department inquiring about heroin detox. Patient states that he has been snorting heroin for the past few weeks and last used this morning. He states that he wants to go to detox to clean up and his insurance rquires that he go to the ED first. .He states that he gets blood work every months after his liver transplant. During resident exam he stated that he needs to get his Prograf prescription filled before he goes back to detox The patient denies chest pain, shortness of breath, headache and dizziness. Denies fever, chills, nausea, vomit, abd pain, diarrhea and constipation. Denies dysuria, frequency, urgency and hematuria. Allergies: None Past surgical history: left hip replacement 2000, liver transplant 2005 Social history: Heroin use. PCP: Prisca Garcia - Physicial Exam PE: 04/24/18 16:02 GENERAL: The patient is awake, alert, and fully oriented, Nontoxic - in no acute distress. HEAD: Normocephalic, atraumatic. EYES: extraocular movements intact, sclera anicteric, conjunctiva clear. ENT: Normal voice, Moist mucous membranes. NECK: Normal range of motion, supple LUNGS: Breath sounds equal, clear to auscultation bilaterally. No wheezes, no rhonchi, no rales. HEART: Regular rate and rhythm, without murmur, rub or gallop. ABDOMEN: Soft, nontender, No guarding, no rebound.No CVA tenderness EXTREMITIES: Normal range of motion, no edema. hyperpigmented skin on shins/ ankles (chronic) NEUROLOGICAL: No facial assymetry, Normal speech, PSYCH: Normal mood, normal affect. SKIN: Warm, Dry, normal turgor - Medical Decision Making 04/24/18 16:03 pt without complaints requesting heroin detox states he wiul go tomorrow as he needs to get his rx for his meds prior to going to detox. states he has no complaints and is only here because his insurance rquires an ED visit first <?> will dc pt with infor for [facility] detox I discussed the physical exam findings, ancillary test results and final diagnoses with the patient. I answered all of the patient's questions. The patient was satisfied with the care received and felt comfortable with the discharge plan and treatment plan. The patient will call their primary care physician within 24 hours to arrange follow-up and will return to the Emergency Department with any new, persistent or worsening symptoms.
== END 2018-04-24 16:10 | disposition home or self-care (01) ==
LOC: JER 14:46
DX: F11.20 Opioid dependence, uncomplicated (principal); B18.2 Chronic viral hepatitis C; K74.60 Unspecified cirrhosis of liver; Z94.4 Liver transplant status; Z86.69 Personal history of other diseases of the nervous system and sense organs; F17.210 Nicotine dependence, cigarettes, uncomplicated
CPT/HCPCS: 99281-25

== ENCOUNTER 2018-04-25 15:24 | Inpatient (IN) | payer OTHER ==
[2018-04-25 17:34] VITALS: BMI 20.3
--- NOTE | 2018-04-25 20:56 | HP ---
COWS - Scale Resting Pulse: 0= SD 80 or Below Sweatin= Chills/Flushing Restless Observation: 1= Difficult to Sit Still Pupil Size: 0= Normal to Room Light Bone or Joint Aches: 4=Acute Joint/Muscle Pain Runny Nose/ Eye Tearin= Runny Nose/Eyes GI Upset > 30mins: 0= None Tremor Observation: 1= Tremor [place], Not Seen Yawning Observation: 1= 1-2x During Session Anxiety or Irritability: 2=Irritable/Anxious Goose Flesh Skin: 0=Smooth Skin COWS Score: 12 CIWA Score - CIWA Score Nausea/Vomitin-No Nausea/No Vomiting Muscle Tremors: None Anxiety: 1-Mildly Anxious Agitation: 0-Normal Activity Paroxysmal Sweats: No Perspiration Orientation: 1-Uncertain about Date Tacttile Disturbances: 0-None Auditory Disturbances: 0-None Visual Disturbances: 3-Moderate Sensitivity (CHRONIC TO LIGHT TO TO OLD INJURY FROM WELDING) Headache: 4-Moderately Severe (HX/O MIGRAINE) CIWA-Ar Total Score: 9 Admission [facility] Chief Complaint: SEEKING DETOX FROM ALCOHOL AND HEROIN. C/O WITHDRAWAL SX'S Allergies/Adverse Reactions: Allergies Allergy/AdvReac Type Severity Reaction Status Date / Time No Known Allergies Allergy Verified 04/25/18 18:58 History of Present Illness: 57 Y.O. FEMALE WITH LONG HX/O ALCOHOL AND HEROIN HERE FOR DETOX. CLIENT IS KNOWN TO THIS PROGRAM, LAST HERE 10/26/17-10/28/17 WHERE HE ELOPED. HE IS REFERRED TODAY BY [facility] AFTER PRESENTING THERE TODAY FOR C/O WITHDRAWAL SX'S. REPORTS HX/O OVERDOSING 2X. DENIES SOB, C.P, SEIZURE D/O, AVH, PAST/PRESENT SI/ HI.REPORTS LONGEST CLEAN TIME 11 YEARS. CLIENT REPORTS HE IS NO LONGER CHRONIC ALCOHOLIC. STATES DRINKS 1-12 OZ BEER 1- 2X A WEEK TO HELP WITH SLEEP. LAST DRINK 4 DAYS AGO. D/W CLIENT WILL DETOX FROM HEROIN AND MAY REQUEST VALIUM Q4 HOURS PRN X3 DAYS IF NEEDED. CLIENT VERBALIZED UNDERSTANDING PMHX: GERD, HISTORY OF LIVER TRANSPLANT, ON AC FOR BLOOD CLOT IN THE "ABD" PSYCH: MANIC DEPRESSIVE Exam Limitations: No Limitations - Ebola screening Have you traveled outside of the country in the last 21 days: No Have you had contact with anyone from an Ebola affected area: No Have you been sick,other than usual withdrawal symptoms: No Do you have a fever: No - Review of Systems Constitutional: Chills, Malaise, Night Sweats, Changes in sleep, Weakness, Unintentional Wgt. Loss EENT: reports: Dental Problems (MISSING TEETH), Other (CORRECTIVE LENSES) Respiratory: reports: No Symptoms reported Cardiac: reports: No Symptoms Reported GI: reports: No Symptoms Reported : reports: No Symptoms Reported Musculoskeletal: reports: Back Pain (CHRONIC) Integumentary: reports: No Symptoms Reported Neuro: reports: No Symptoms reported Endocrine: reports: No Symptoms Reported Hematology: reports: Blood Clots (IN THE ABD), Other (ON LOVENOX) Psychiatric: reports: Depressed (AFFECT) Other Systems: Reviewed and Negative Patient History - Patient Medical History Hx Anemia: No Hx Asthma: No Hx Chronic Obstructive Pulmonary Disease (COPD): No Hx Cancer: No Hx Cardiac Disorders: No Hx Congestive Heart Failure: No Hx Hypertension: No Hx Hypercholesterolemia: No Hx Pacemaker: No HX Cerebrovascular Accident: No Hx Seizures: No Hx Dementia: No Hx Diabetes: No Hx Gastrointestinal Disorders: Yes (GERD) Hx Liver Disease: Yes (hx liver transplant 2005 [facility]) Hx Genitourinary Disorders: No Hx Sexually Transmitted Disorders: No Hx Renal Disease (ESRD): No Hx Thyroid Disease: No Hx Human Immunodeficiency Virus (HIV): No Hx Hepatitis C: No Hx Depression: Yes Hx Suicide Attempt: No Hx Bipolar Disorder: No Hx Schizophrenia: No Other Medical History: ABD BLOOD CLOT ON AC TX - Patient Surgical History Past Surgical History: Yes Hx Neurologic Surgery: No Hx Cataract Extraction: No Hx Cardiac Surgery: No Hx Lung Surgery: No Hx Breast Surgery: No Hx Breast Biopsy: No Hx Abdominal Surgery: Yes (liver transplant IN 2005 [facility]) Hx Appendectomy: No Hx Cholecystectomy: No Hx Genitourinary Surgery: No Hx Section: No Hx Orthopedic Surgery: Yes (left hip replacement 2000) Anesthesia Reaction: No - PPD History Previous Implant?: Yes Documented Results: Negative w/proof Implanted On Prior [facility] Admission?: Yes Date: 01/04/17 Results: NO READING PPD to be Administered?: Yes - Smoking Cessation Smoking history: Current every day smoker Have you smoked in the past 12 months: Yes Aproximately how many cigarettes per day: 20 Cigars Per Day: 0 Hx Chewing Tobacco Use: No Initiated information on smoking cessation: Yes 'Breaking Loose' booklet given: 04/25/18 - Substance & Tx. History Hx Alcohol Use: Yes Hx Substance Use: Yes Substance Use Type: Alcohol (SOCIAL), Heroin Hx Substance Use Treatment: Yes ([facility]) - Substances Abused Heroin Route: Inhalation Frequency: Daily Amount used: 10 bags Age of first use: 33 Date of Last Use: 04/25/18 Alcohol Route: Oral Frequency: 1-2 times per week Amount used: 1-12OZ Age of first use: 11 Date of Last Use: 04/21/18 Family Disease History - Family Disease History Family Disease History: Heart Disease: Father (,), Other: Father Admission Physical Exam [facility] - Vital Signs Vital Signs: Vital Signs - 24 hr 04/25/18 17:31 Temperature 98.5 F Pulse Rate 68 Respiratory 19 Rate Blood Pressure 131/87 - Physical General Appearance: Yes: Appropriately Dressed, Mild Distress, Cachetic, Thin HEENTM: Yes: EOMI, Normal ENT Inspection, Normocephalic, Normal Voice, BRYAN, Pharynx Normal, Other (CORRECTIVE LENSES) Respiratory: Yes: Chest Non-Tender, Lungs Clear, Normal Breath Sounds, No Respiratory Distress, No Accessory Muscle Use Neck: Yes: No masses,lesions,Nodules, Supple, Trachea in good position Breast: Yes: Breast Exam Deferred Cardiology: Yes: Regular Rhythm, Regular Rate, S1, S2 Abdominal: Yes: Normal Bowel Sounds, Non Tender, Flat, Soft, Surgical Scar, Other (VARICES) Genitourinary: Yes: Other (NO C/O) Back: Yes: Normal Inspection Musculoskeletal: Yes: full range of Motion, Gait Steady Extremities: Yes: Normal Capillary Refill, Normal Range of Motion, Non-Tender Neurological: Yes: Alert, Motor Strength 5/5, Depressed Affect Integumentary: Yes: Warm, Other (DISCOLORATION OF BLE) Lymphatic: Yes: Within Normal Limits - Diagnostic (1) GERD (gastroesophageal reflux disease) Current Visit: Yes Status: Chronic Qualifiers: Esophagitis presence: esophagitis presence not specified Qualified Code(s) : K21.9 - Gastro-esophageal reflux disease without esophagitis (2) Blood clot in abdominal vein Current Visit: Yes Status: Chronic Comment: ON LOVENOX (3) Migraine Current Visit: Yes Status: Chronic Qualifiers: Migraine type: unspecified (4) Nicotine dependence Current Visit: Yes Status: Chronic Qualifiers: Nicotine product type: cigarettes Substance use status: in withdrawal Qualified Code(s): F17.213 - Nicotine dependence, cigarettes, with withdrawal (5) Opioid dependence with withdrawal Current Visit: Yes Status: Acute (6) History of liver transplant Current Visit: Yes Status: Chronic Comment: ON PROGRAFT (7) History of portal hypertension Current Visit: No Status: Chronic (8) Weight loss Current Visit: Yes Status: Chronic (9) Drug-induced mood disorder Current Visit: Yes Status: Suspected (10) Depressed affect Current Visit: Yes Status: Acute Cleared for Admission S - Detox or Rehab [facility] Level of Care: Medically Managed Detox Regimen/Protocol: Methadone Claeared for Rehab Admission: No S Breath Alcohol Content Breath Alcohol Content: 0 Urine Drug Screen - Results Drug Screen Negative: No Urine Drug Screen Results: OPI-Opiates, MTD-Methadone, TCA-Tricyclic Antidepress
[2018-04-25] MEDS ORDERED: MENTHOL/PHENOL 1 EACH UD MM PRN (21:11)
[2018-04-25] MEDS ORDERED: LOPERAMIDE HCL 2 MG CAPSULE PO PRN (21:11)
[2018-04-25] MEDS ORDERED: MAGNESIUM CITRATE 300 ML BOTTLE PO PRN (21:11)
[2018-04-25] MEDS ORDERED: IBUPROFEN 400 MG TABLET (FP) PO PRN (21:11)
[2018-04-25] MEDS ORDERED: MAG HYDROX/AL HYDROX/SIMETH 30 ML UNIT-DOSE CUP PO PRN (21:11)
[2018-04-25] MEDS ORDERED: NICOTINE POLACRILEX 2 MG GUM BUC PRN (21:11)
[2018-04-25] MEDS ORDERED: P-EPHED 60MG/TRIPROLIDI 2.5MG TABLET PO PRN (21:11)
[2018-04-25] MEDS ORDERED: ACETAMINOPHEN 325 MG TABLET (FP) PO PRN (21:11)
[2018-04-25] MEDS ORDERED: guaiFENesin/D-METHORPHAN HB 10 ML UNIT-DOSE CUPS PO PRN (21:11)
[2018-04-25] MEDS ORDERED: MAGNESIUM HYDROX 2400MG/30ML ORAL SUSPENSION 30 ML CUP PO PRN (21:11)
[2018-04-25] MEDS ORDERED: MELATONIN 5 MG TABLETS PO PRN (22:00)
[2018-04-26] MEDS ORDERED: METHADONE HCL 10 MG TABLET (FOR DETOX USE ONLY) PO ONE ×3 (00:41→23:00)
[2018-04-26] MEDS: diazePAM 5 MG TABLET PO PRN ×2 (00:49→09:03)
[2018-04-26] MEDS: NADOLOL 20 MG TABLET (FP) PO SCH ×3 (00:54→23:03)
[2018-04-26] MEDS: ENOXAPARIN NA (PORCINE) 30 MG/0.3 ML DISP.SYRIN SQ SCH ×2 (00:54→23:04)
[2018-04-26] MEDS: TACROLIMUS ANHYDROUS 1 MG CAPSULE PO SCH ×3 (00:54→23:04)
[2018-04-26] MEDS: THIAMINE HCL 100 MG TABLET (FP) PO SCH ×2 (00:54→23:05)
[2018-04-26 01:23] LABS: URINE APPEARANCE CLEAR; URINE BILIRUBIN NEGATIVE (<2.0 mg/dL); URINE GLUCOSE (UA) NEGATIVE (NEGATIVE); URINE KETONE NEGATIVE (NEGATIVE); URINE LEUK ESTERASE NEGATIVE (NEGATIVE); URINE NITRITE NEGATIVE (NEGATIVE)
[2018-04-26 01:28] LABS: URINE COLOR DK YELLOW; URINE PROTEIN 1+ (NEGATIVE)
[2018-04-26 01:34] LABS: EPI CELLS RARE /HPF (FEW)
[2018-04-26] MEDS: PATIENT'S OWN MEDICATION (NON-FORMULARY) (Esomeprazole Magnesium [Nexium 24hr] 40 MG) PO SCH ×2 (09:21→23:04)
[2018-04-26] MEDS ORDERED: PRENATAL VITAMINS W/ FOLIC ACID TABLET (FP) PO SCH (10:00)
[2018-04-26] MEDS ORDERED: PANTOPRAZOLE 20 MG TABLET (FP) PO SCH (10:00)
[2018-04-26] MEDS ORDERED: NICOTINE 21 MG/24 HOURS TOPICAL PATCH TD SCH (10:00)
[2018-04-26 10:43] LABS: ALBUMIN 2.7 g/dl (3.4-5.0); ANION GAP 5 MMOL/L (8-16); BLOOD UREA NITROGEN 32 mg/dL (7-18); CALCIUM 8.2 mg/dL (8.5-10.1); CHLORIDE 112 mmol/L (98-107); CO2 22 mmol/L (21-32); GLUCOSE,RANDOM 81 mg/dL (74-106); POTASSIUM 5.4 mmol/L (3.5-5.1); SODIUM 139 mmol/L (136-145)
[2018-04-26 10:47] LABS: ALK PHOS 92 U/L (45-117); BILIRUBIN,TOTAL 0.6 mg/dL (0.2-1.0); CREATININE 1.2 mg/dL (0.7-1.3); SGOT/AST 26 U/L (15-37); SGPT/ALT 18 U/L (12-78); TOT PROT 7.1 g/dl (6.4-8.2)
[2018-04-26 10:55] LABS: HEMATOCRIT 25.9 % (35.4-49); HEMOGLOBIN 8.9 GM/dL (11.7-16.9); MCH 30.6 pg (25.7-33.7); MCHC 34.3 g/dl (32.0-35.9); MEAN CELL VOLUME 89.4 fl (80-96); MEAN PLT VOLUME 8.9 fl (7.5-11.1); PLATELET COUNT 39 K/MM3 (134-434); RDW 13.9 % (11.9-15.9)
[2018-04-26 11:05] LABS: WHITE BLOOD COUNT 1.7 K/mm3 (4.0-10.0)
--- NOTE | 2018-04-26 11:47 | PN ---
[facility] COWS - Scale Resting Pulse: 0= [place] 80 or Below Sweatin= Chills/Flushing Restless Observation: 3= Extraneous Movement Pupil Size: 2= Moderately Dilated Bone or Joint Aches: 4=Acute Joint/Muscle Pain Runny Nose/ Eye Tearin= None GI Upset > 30mins: 1= Stomach Cramp Tremor Observation of Outstretched Hands: 1= Tremor [place], Not Seen Yawning Observation: 1= 1-2x During Session Anxiety or Irritability: 2=Irritable/Anxious Goose Flesh Skin: 0=Smooth Skin COWS Score: 15 BHS Progress Note (SOAP) Subjective: ANXIETY,SWEATS,IRRITABILITY,STOMACH CRAMPS, SNEEZING, NASAL CONGESTION. Objective: 04/26/18 11:45 Vital Signs 04/26/18 04/26/18 04/26/18 06:18 06:30 09:17 Temperature 97.2 F L 98.0 F Pulse Rate 58 L 58 L Respiratory 18 18 18 Rate Blood Pressure 106/63 132/79 Laboratory Tests 04/25/18 04/26/18 04/26/18 23:20 07:30 07:30 WBC 1.7 L* RBC 2.90 L Hgb 8.9 L Hct 25.9 L MCV 89.4 MCH 30.6 MCHC 34.3 RDW 13.9 Plt Count 39 L MPV 8.9 Sodium 139 Potassium 5.4 H Chloride 112 H Carbon Dioxide 22 Anion Gap 5 L BUN 32 H Creatinine 1.2 Creat Clearance w eGFR > 60 Random Glucose 81 Calcium 8.2 L Total Bilirubin 0.6 AST 26 ALT 18 D Alkaline Phosphatase 92 Total Protein 7.1 Albumin 2.7 L Urine Color Dk yellow Urine Appearance Clear Urine pH 5.0 Ur Specific [place] 1.019 Urine Protein 1+ H Urine Glucose (UA) Negative Urine Ketones Negative Urine Blood Negative Urine Nitrite Negative Urine Bilirubin Negative Urine Urobilinogen 2.0 Ur Leukocyte Esterase Negative Urine WBC (Auto) <1 Urine RBC (Auto) 1 Ur Epithelial Cells Rare LABS NOTED. HX PANCYTOPENIA ELEVATED K+ = 5.4 Assessment: 04/26/18 11:46 WITHDRAWAL SX Plan: CONTINUE DETOX REPEAT CMP AND CBC IN A.M INCREASE PO FLUIDS
--- NOTE | 2018-04-26 12:29 | EKG ---
Test Reason : Blood Pressure : / mmHG Vent. Rate : 061 BPM Atrial Rate : 061 BPM P-R Int : 184 ms QRS Dur : 132 ms QT Int : 456 ms P-R-T Axes : 022 -03 032 degrees QTc Int : 459 ms NORMAL SINUS RHYTHM RIGHT BUNDLE BRANCH BLOCK ABNORMAL ECG WHEN COMPARED WITH ECG OF 26-OCT-2017 17:26, NO SIGNIFICANT CHANGE WAS FOUND Confirmed by MARYANN HAYES MD ([id number]) on 04/26/2018 12:28:45 PM Referred By: Confirmed By:MARYANN HAYES MD
--- NOTE | 2018-04-26 16:15 | PN ---
[facility] Progress Note Note: PT IS A 57 YRS OLD MALE ADMITTED YESTERDAY FOR HEROIN DETOX.PT IS CURRENTLY ON METHADONE TAPER. PT IS C/ O EXCRUCIATING ABDOMINAL PAIN WITH MOANING AND RESTLESSNESS ESPECIALLY ON THE LEFT SIDE OF ADOMEN. C/O NO BM X 3 DAYS WITH A HX OF INTESTINAL BLOCK 2 MONTHS AGO AND WENT TO [facility] FOR TREATMENT. PT RECEIVED MOM AND CITROMA EARLIER TODAY WITH NO EFFECT. PT REPORTED VOMITING . PT HAS A HX OF LIVER TRANSPLANT,ALCOHOL RELATED SEIZURE, PORTAL HYPERTENSION, PANCYTOPENIA,GERD. PT IS ALERT O X 3. REQUESTING TO GO TO THE ER BECAUSE "I HAD INTESTINAL BLOCK 2 MONTHS AGO AND I KNOW MYSELF". Vital Signs 04/26/18 04/26/18 04/26/18 09:17 13:09 16:08 Temperature 98.0 F 97.7 F 97.0 F L Pulse Rate 58 L 64 61 Respiratory 18 18 18 Rate Blood Pressure 132/79 142/76 154/94 Laboratory Tests 04/25/18 04/26/18 04/26/18 23:20 07:30 07:30 WBC 1.7 L* RBC 2.90 L Hgb 8.9 L Hct 25.9 L MCV 89.4 MCH 30.6 MCHC 34.3 RDW 13.9 Plt Count 39 L MPV 8.9 Sodium 139 Potassium 5.4 H Chloride 112 H Carbon Dioxide 22 Anion Gap 5 L BUN 32 H Creatinine 1.2 Creat Clearance w eGFR > 60 Random Glucose 81 Calcium 8.2 L Total Bilirubin 0.6 AST 26 ALT 18 D Alkaline Phosphatase 92 Total Protein 7.1 Albumin 2.7 L Urine Color Dk yellow Urine Appearance Clear Urine pH 5.0 Ur Specific [place] 1.019 Urine Protein 1+ H Urine Glucose (UA) Negative Urine Ketones Negative Urine Blood Negative Urine Nitrite Negative Urine Bilirubin Negative Urine Urobilinogen 2.0 Ur Leukocyte Esterase Negative Urine WBC (Auto) <1 Urine RBC (Auto) 1 Ur Epithelial Cells Rare RPR Titer 04/26/18 07:30 WBC RBC Hgb Hct MCV MCH MCHC RDW Plt Count MPV Sodium Potassium Chloride Carbon Dioxide Anion Gap BUN Creatinine Creat Clearance w eGFR Random Glucose Calcium Total Bilirubin AST ALT Alkaline Phosphatase Total Protein Albumin Urine Color Urine Appearance Urine pH Ur Specific [place] Urine Protein Urine Glucose (UA) Urine Ketones Urine Blood Urine Nitrite Urine Bilirubin Urine Urobilinogen Ur Leukocyte Esterase Urine WBC (Auto) Urine RBC (Auto) Ur Epithelial Cells RPR Titer Nonreactive EXAM:PT IS VERY RESTLESS AND UNABLE TO TOLERATE ANY TOUCH TO ABDOMEN. ABDOMEN DISTENDED,TENDERNESS AND GUARDING IN AN EFFORT TO EXAMINE PATIENT. IMPRESSION:SEVERE ABDOMINAL PAIN R/O INTESTINAL OBSTRUCTION PLAN:TRANSFER PT TO [facility] ER VIA AMBULANCE FOR EVALUATION AND TREATMENT. ON HOLD ON PHONE FOR 20 TO 25 MINS BUT UNABLE TO SPEAK TO A MEDICAL PROVIDER. ABLE TO SPEAK TO ER NURSE, LYNNETTE COPPOLA WHO AGREED TO COMMUNICATE THIS PATIENT'S STATUS TO THE MD/SENIOR ELECTRICAL DESIGNER/PA AT THE ER.
--- NOTE | 2018-04-26 17:57 | CONSULT ---
[facility] Psychiatric Consult - Data Date of interview: 04/26/18 Admission source: [facility] Identifying data: Patient is not available for psychiatric evaluation.Transferred earlier to [facility] for medical management.
[2018-04-26 19:09] VITALS: BP 165/83; PULSE 57; TEMP 97.2
[2018-04-27] MEDS ORDERED: METHADONE HCL 10 MG TABLET (FOR DETOX USE ONLY) PO ONE (10:00)
--- NOTE | 2018-04-27 10:43 | DS ---
[facility] Detox Discharge Summary Admission Date: 04/25/18 Discharge Date: 04/26/18 - History Present History: Opioid Dependence Additional Comments: TRANSFERRED TO [facility] ER DUE TO SEVERE ABDOMINAL PAIN. Pertinent Past History: PLEASE SEE DX BELOW - Physical Exam Results Vital Signs: Vital Signs Temperature 97.2 F L 04/26/18 19:08 Pulse Rate 57 L 04/26/18 19:08 Respiratory Rate 18 04/26/18 19:08 Blood Pressure 165/83 04/26/18 19:08 O2 Sat by Pulse Oximetry (%) Pertinent Admission Physical Exam Findings: WITHDRAWAL SX Laboratory Tests 04/25/18 04/26/18 04/26/18 23:20 07:30 07:30 WBC 1.7 L* RBC 2.90 L Hgb 8.9 L Hct 25.9 L MCV 89.4 MCH 30.6 MCHC 34.3 RDW 13.9 Plt Count 39 L MPV 8.9 Sodium 139 Potassium 5.4 H Chloride 112 H Carbon Dioxide 22 Anion Gap 5 L BUN 32 H Creatinine 1.2 Creat Clearance w eGFR > 60 Random Glucose 81 Calcium 8.2 L Total Bilirubin 0.6 AST 26 ALT 18 D Alkaline Phosphatase 92 Total Protein 7.1 Albumin 2.7 L Urine Color Dk yellow Urine Appearance Clear Urine pH 5.0 Ur Specific [place] 1.019 Urine Protein 1+ H Urine Glucose (UA) Negative Urine Ketones Negative Urine Blood Negative Urine Nitrite Negative Urine Bilirubin Negative Urine Urobilinogen 2.0 Ur Leukocyte Esterase Negative Urine WBC (Auto) <1 Urine RBC (Auto) 1 Ur Epithelial Cells Rare RPR Titer 04/26/18 07:30 WBC RBC Hgb Hct MCV MCH MCHC RDW Plt Count MPV Sodium Potassium Chloride Carbon Dioxide Anion Gap BUN Creatinine Creat Clearance w eGFR Random Glucose Calcium Total Bilirubin AST ALT Alkaline Phosphatase Total Protein Albumin Urine Color Urine Appearance Urine pH Ur Specific [place] Urine Protein Urine Glucose (UA) Urine Ketones Urine Blood Urine Nitrite Urine Bilirubin Urine Urobilinogen Ur Leukocyte Esterase Urine WBC (Auto) Urine RBC (Auto) Ur Epithelial Cells RPR Titer Nonreactive - Medication Discharge Medications: Ambulatory Orders Tacrolimus [Prograf] 2 mg PO HS 09/04/16 Enoxaparin Sodium [Lovenox] 30 mg SQ HS 09/05/16 Nadolol [Corgard -] 20 mg PO BID 01/02/17 Esomeprazole Magnesium [Nexium 24Hr] 40 mg PO HS 10/07/17 - Diagnosis (1) Opioid dependence with withdrawal Status: Acute (2) GERD (gastroesophageal reflux disease) Status: Chronic Qualifiers: Esophagitis presence: esophagitis presence not specified Qualified Code(s) : K21.9 - Gastro-esophageal reflux disease without esophagitis (3) History of liver transplant Status: Chronic (4) Nicotine dependence Status: Acute Qualifiers: Nicotine product type: cigarettes Substance use status: in withdrawal Qualified Code(s): F17.213 - Nicotine dependence, cigarettes, with withdrawal (5) History of hip replacement Status: Chronic Qualifiers: Laterality: left Qualified Code(s): Z96.642 - Presence of left artificial hip joint (6) History of pancytopenia Status: Chronic (7) History of portal hypertension Status: Chronic (8) Alcohol related seizure Status: Suspected - AMA Did Patient Leave Against Medical Advice: No
[2018-04-28] MEDS ORDERED: METHADONE HCL 5 MG TABLET (FOR DETOX USE ONLY) PO ONE (10:00)
[2018-04-29] MEDS ORDERED: METHADONE HCL 5 MG TABLET (FOR DETOX USE ONLY) PO ONE (10:00)
[2018-04-30] MEDS ORDERED: METHADONE HCL 10 MG TABLET (FOR DETOX USE ONLY) PO ONE (10:00)
[2018-05-01] MEDS ORDERED: METHADONE HCL 5 MG TABLET (FOR DETOX USE ONLY) PO ONE (06:00)
== END 2018-04-26 11:55 | disposition short-term general hospital (02) | DRG 897 ==
LOC: YASAS 15:24 → Y3N 22:35
PROC: HZ2ZZZZ Detoxification Services for Substance Abuse Treatment (ICD-10-PCS; principal; 2018-04-25)
DX: F11.23 Opioid dependence with withdrawal (principal); G40.509 Epileptic seizures related to external causes, not intractable, without status epilepticus; I82.890 Acute embolism and thrombosis of other specified veins; Z94.4 Liver transplant status; F17.213 Nicotine dependence, cigarettes, with withdrawal; K21.9 Gastro-esophageal reflux disease without esophagitis; Z86.2 Personal history of diseases of the blood and blood-forming organs and certain disorders involving the immune mechanism; Z86.79 Personal history of other diseases of the circulatory system; Z96.642 Presence of left artificial hip joint; Z79.01 Long term (current) use of anticoagulants
CPT/HCPCS: 36415; 80053; 81003; 81015; 85027; 86593; 93005; 93010

== ENCOUNTER 2018-04-26 17:20 | Emergency (ER) | payer OTHER ==
[2018-04-26 17:30] VITALS: BMI 23.5
[2018-04-26] MEDS ORDERED: morphine CARPU-JECT 4 MG/1 ML DISP.SYRIN IVPUSH ONE ×2 (17:43→22:00)
[2018-04-26] MEDS ORDERED: SODIUM CHLORIDE 1,000 ML IV STA (17:43)
[2018-04-26] MEDS ORDERED: ONDANSETRON 4 MG/2 ML VIAL IVPB ONE (17:44)
[2018-04-26] MEDS ORDERED: KETOROLAC TROMETHAMINE 30 MG/1 ML VIAL IVPUSH ONE (17:46)
[2018-04-26] MEDS ORDERED: DICYCLOMINE HCL 20 MG/2 ML AMPUL IM ONE (17:56)
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
[2018-04-26] MEDS ORDERED: morphine SULFATE 4 MG/ML VIAL ONE ×2 (18:08→22:28)
[2018-04-26] MEDS ORDERED: DICYCLOMINE HCL 10 MG CAPSULE ONE (18:09)
[2018-04-26] MEDS ORDERED: KETOROLAC TROMETHAMINE 30 MG/1 ML VIAL ONE (18:09)
[2018-04-26] MEDS ORDERED: LORazepam 2 MG/ML SDV VIAL ONE (18:09)
[2018-04-26] MEDS ORDERED: ONDANSETRON 4 MG/2 ML VIAL ONE ×2 (18:09→18:20)
[2018-04-26 18:32] LABS: BASO % 0.5 % (0-2.0); EOS % 6.3 % (0-4.5); HEMATOCRIT 31.6 % (35.4-49); HEMOGLOBIN 10.6 GM/dL (11.7-16.9); LYMPH % 16.9 % (8-40); MCH 30.2 pg (25.7-33.7); MCHC 33.6 g/dl (32.0-35.9); MEAN CELL VOLUME 89.9 fl (80-96); MONO % 15.3 % (3.8-10.2); RBC 3.52 M/mm3 (4.00-5.60); RDW 14.2 % (11.9-15.9)
[2018-04-26] MEDS ORDERED: DICYCLOMINE HCL 20 MG TABLET PO ONE (18:37)
[2018-04-26 18:59] LABS: ALBUMIN 3.1 g/dl (3.4-5.0); ALK PHOS 109 U/L (45-117); ANION GAP 8 MMOL/L (8-16); BILIRUBIN,TOTAL 0.7 mg/dL (0.2-1.0); BLOOD UREA NITROGEN 29 mg/dL (7-18); CALCIUM 8.7 mg/dL (8.5-10.1); CHLORIDE 110 mmol/L (98-107); CO2 22 mmol/L (21-32); CREATININE 1.2 mg/dL (0.7-1.3); GLUCOSE,RANDOM 101 mg/dL (74-106); POTASSIUM 5.9 mmol/L (3.5-5.1); SGOT/AST 26 U/L (15-37); SGPT/ALT 20 U/L (12-78); SODIUM 140 mmol/L (136-145); TOT PROT 8.1 g/dl (6.4-8.2)
[2018-04-26 19:25] LABS: MEAN PLT VOLUME 7.5 fl (7.5-11.1); PLATELET COUNT 48 K/MM3 (134-434); PLATELET ESTIMATE MOD DECREASED
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
[2018-04-26] MEDS ORDERED: INSULIN REGULAR HUMAN 100 UNITS/ML *VIAL IVPUSH ONE (19:46)
[2018-04-26] MEDS ORDERED: CALCIUM GLUCONATE 10% - 1,000 MG/10 ML VIAL IVPB ONE (19:47)
[2018-04-26] MEDS ORDERED: DEXTROSE 50%-WATER - 25 GM/50 ML VIAL IVPUSH ONE (19:47)
[2018-04-26] MEDS ORDERED: CALCIUM GLUCONATE 10% - 1,000 MG/10 ML VIAL ONE (20:07)
[2018-04-26] MEDS ORDERED: DEXTROSE 50%-WATER 25 GM/50 ML DISP.SYRIN ONE (20:07)
[2018-04-26] MEDS ORDERED: INSULIN (NOVOLOG MIX 70/30) 100 UNITS/ML MDV SQ ONE (20:16)
[2018-04-26] MEDS ORDERED: SODIUM CHLORIDE 0.9% 1000 ML INFUS.BAG IV ONE (21:55)
[2018-04-26] MEDS ORDERED: ENOXAPARIN NA (PORCINE) 60 MG/0.6 ML DISP.SYRIN SQ ONE (22:15)
[2018-04-26] MEDS ORDERED: ENOXAPARIN NA (PORCINE) 80 MG/0.8 ML DISP.SYRIN SQ ONE (22:29)
[2018-04-27 00:20] VITALS: BP 150/63; PULSE 54; TEMP 98.6
[2018-04-27 10:08] LABS: MAGNESIUM 2.3 mg/dL (1.8-2.4); PHOSPHOROUS 3.3 mg/dL (2.5-4.9)
--- NOTE | 2018-04-27 13:46 | EKG ---
Test Reason : Blood Pressure : / mmHG Vent. Rate : 049 BPM Atrial Rate : 049 BPM P-R Int : 178 ms QRS Dur : 126 ms QT Int : 486 ms P-R-T Axes : 031 -09 015 degrees QTc Int : 439 ms SINUS BRADYCARDIA NON-SPECIFIC INTRA-VENTRICULAR CONDUCTION BLOCK ABNORMAL ECG WHEN COMPARED WITH ECG OF 26-APR-2018 00:12, NO SIGNIFICANT CHANGE WAS FOUND Confirmed by OFELIA ZACARIAS MD ([id number]) on 04/27/2018 1:45:57 PM Referred By: Confirmed By:OFELIA ZACARIAS MD
== END 2018-04-27 00:22 | disposition short-term general hospital (02) ==
LOC: JER 17:20
PROC: 3E0337Z Introduction of Electrolytic and Water Balance Substance into Peripheral Vein, Percutaneous Approach (ICD-10-PCS; principal; 2018-04-26)
PROC: 3E013GC Introduction of Other Therapeutic Substance into Subcutaneous Tissue, Percutaneous Approach (ICD-10-PCS; 2018-04-26)
PROC: 3E033NZ Introduction of Analgesics, Hypnotics, Sedatives into Peripheral Vein, Percutaneous Approach (ICD-10-PCS; 2018-04-26)
PROC: 3E033VG Introduction of Insulin into Peripheral Vein, Percutaneous Approach (ICD-10-PCS; 2018-04-26)
PROC: 3E033NZ Introduction of Analgesics, Hypnotics, Sedatives into Peripheral Vein, Percutaneous Approach (ICD-10-PCS; 2018-04-26)
PROC: 3E033NZ Introduction of Analgesics, Hypnotics, Sedatives into Peripheral Vein, Percutaneous Approach (ICD-10-PCS; 2018-04-26)
PROC: 3E0333Z Introduction of Anti-inflammatory into Peripheral Vein, Percutaneous Approach (ICD-10-PCS; 2018-04-26)
PROC: 3E033GC Introduction of Other Therapeutic Substance into Peripheral Vein, Percutaneous Approach (ICD-10-PCS; 2018-04-26)
PROC: 0D9670Z Drainage of Stomach with Drainage Device, Via Natural or Artificial Opening (ICD-10-PCS; 2018-04-26)
DX: I81 Portal vein thrombosis (principal); K56.7 Ileus, unspecified; F11.10 Opioid abuse, uncomplicated; F10.10 Alcohol abuse, uncomplicated; E87.5 Hyperkalemia; D69.6 Thrombocytopenia, unspecified; F17.210 Nicotine dependence, cigarettes, uncomplicated; Z96.642 Presence of left artificial hip joint; Z94.4 Liver transplant status
CPT/HCPCS: 36415; 74176-TC; 80053; 83690; 83735; 84100; 85025; 93005; 93010; 99283-25; J7030